=== PATIENT | male | born 1955 | race Caucasian/White ===

== ENCOUNTER 2020-04-20 09:01 | Emergency (ER) | payer OTHER ==
[~2020-04-20] VITALS: Ht 182.9 cm; Wt 99.3 kg
== END 2020-04-20 10:30 | disposition home or self-care (01) ==
LOC: ER 09:01
DX: J02.9 Acute pharyngitis, unspecified (principal)
CPT/HCPCS: 99284

== ENCOUNTER → 2021-04-14 | Outpatient (CLI) | payer OTHER | LOC: LAB SHORT 10:30 → LAB 10:30 | DX: R21 Rash and other nonspecific skin eruption (principal) | CPT/HCPCS: 87070; 87205 ==

== ENCOUNTER 2023-06-09 18:22 | Emergency (ER) | payer OTHER ==
[~2023-06-09] VITALS: Ht 193 cm; Wt 119.3 kg
[2023-06-09 19:03] VITALS: BP 112/66
== END 2023-06-09 20:29 | disposition home or self-care (01) ==
LOC: ER 18:22
DX: S80.821A Blister (nonthermal), right lower leg, initial encounter (principal); X58.XXXA Exposure to other specified factors, initial encounter; G62.9 Polyneuropathy, unspecified; R73.03 Prediabetes
CPT/HCPCS: 99284

== ENCOUNTER 2023-06-27 20:50 | Inpatient (IN) | payer OTHER ==
[~2023-06-27] VITALS: Ht 193 cm; Wt 110.7 kg
[2023-06-27 21:13] LABS: Hematocrit 29.9 % (37.0-53.0)
[2023-06-27] MEDS ORDERED: LOSA25 PO (21:14)
[2023-06-27] MEDS ORDERED: METF500 PO (21:15)
[2023-06-27] MEDS ORDERED: ASPI81CH PO (21:15)
[2023-06-27] MEDS ORDERED: DILT30 PO (21:15)
[2023-06-27] MEDS ORDERED: ALBU2.5V5 (21:16)
[2023-06-27] MEDS ORDERED: IBU800 MG PO (21:16)
[2023-06-27] MEDS ORDERED: ACET325 PO (21:17)
[2023-06-27 21:21] LABS: BASOPHILS ABSOLUTE AUTO 0.03 K/mm3 (0.00-0.23); BASOPHILS PERCENT AUTO 0 % (0-2); Hemoglobin 9.9 g/dL (13.5-17.5); LYMPHOCYTES ABSOLUTE AUTO 0.16 K/mm3 (0.84-5.20); LYMPHOCYTES PERCENT AUTO 2 % (21-46); MONOCYTES ABSOLUTE AUTO 0.25 K/mm3 (0.16-1.47); MONOCYTES PERCENT AUTO 3 % (4-13); Mean Corpuscular HGB 31.7 pg (26.0-34.0); Mean Corpuscular HGB Conc 33.1 g/dL (31.5-36.5); Mean Corpuscular Volume 96 fL (80-100); Mean Platelet Volume 9.5 fL (9.1-12.4); Platelet Count 228 K/mm3 (150-400); RDW Coefficient Variation 13.1 % (11.7-14.2); RDW Standard Deviation 46.3 fL (35.1-46.3); Red Blood Cell Count 3.12 M/mm3 (4.30-5.90); White Blood Cell Count 8.99 K/mm3 (4.00-11.30)
[2023-06-27 21:24] LABS: EOSINOPHILS ABSOLUTE AUTO 0.03 K/mm3 (0.00-0.68); EOSINOPHILS PERCENT AUTO 0 % (0-6); IMMATURE GRAN ABSOLUTE AUTO 0.05 K/mm3 (0.00-0.10); IMMATURE GRAN PERCENT AUTO 1 % (0-1); NEUTROPHILS ABSOLUTE AUTO 8.47 K/mm3 (1.96-9.15); NEUTROPHILS PERCENT AUTO 94 % (41-73)
[2023-06-27 21:27] LABS: International Normalized Ratio 1.64; Prothrombin Time Results 16.7 Sec (9.7-11.5)
[2023-06-27 21:34] LABS: Albumin, Blood 1.9 g/dL (3.4-5.0); Albumin/Globulin Ratio 0.4 (0.8-1.8); Bilirubin, Total 1.2 mg/dL (0.1-1.0); Bun/Creatinine Ratio 23.6 (12.0-20.0); Calcium, Blood 9.3 mg/dL (8.5-10.1); Creatinine, Blood 2.2 mg/dL (0.60-1.20); Globulin, Blood 5.3 g/dL (2.2-4.0); Potassium, Blood 3.9 mmol/L (3.5-5.5); Total Protein, Blood 7.2 g/dL (6.4-8.2)
[2023-06-27 21:43] LABS: BAND PERCENT MAN 9 % (0-8); BASOPHILS ABSOLUTE MAN 0.08 K/mm3 (0.00-0.23); BASOPHILS PERCENT MAN 1 % (0-2); EOSINOPHILS PERCENT MAN 0 % (0-6); LYMPHOCYTES ABSOLUTE MAN 0.35 K/mm3 (0.84-5.20); LYMPHOCYTES PERCENT MAN 4 % (21-46); MONOCYTES ABSOLUTE MAN 0.26 K/mm3 (0.16-1.47); MONOCYTES PERCENT MAN 3 % (4-13); NEUTROPHILS ABSOLUTE MAN 8.27 K/mm3 (1.96-9.15); SEG NEUTROPHILS PERCENT MAN 83 % (41-73); TOTAL CELLS COUNTED 100
[2023-06-28] VITALS (20 sets, daily range): BP systolic 95–125; BP diastolic 37–71
--- NOTE | 2023-06-28 00:30 | NUR ---
ADMIT ASSESSMENT PT ARRIVED FROM ER TO PCU 4 VIA GURNEY. TRANSFERED TO BED BY STAFF WITH SLIDER SHEET. PT AWAKE, A&O. ANSWERING QUESTIONS APPROP. SPEECH CLEAR. DENIES PAIN OR DISCOMFORT. PT MOVING ALL EXT. LUNGS CLEAR ON ROOMAIR. RESP EVEN AND NONLABORED. HEART RATE REGULAR. BP STABLE. BT+ ABD SOFT AND NONTENDER. DR STEWART AT BEDSIDE. RED RASH WITH YEAST NOTED TO RIGHT AXCILLARY, AND GROIN. RIGHT FOOT WITH WOUNDS, SEE WOUND PHOTO. IV 18G TO LEFT AC WITH ANTIBIOTIC INFUSING. WOUND CARE TO RIGHT FOOT. AREA CLEANED AND DRIED. HYDROGEL APPLIED AND COVERED WITH FOAM DRSG, THAN WRAPPED WITH GUAZE AND TAPE.
[2023-06-28 01:17] LABS: Phosphorus, Blood 2.3 mg/dL (2.5-4.9)
[2023-06-28] MEDS ORDERED: LATA.005SO BOTHEYES (01:23)
[2023-06-28] MEDS ORDERED: CLOBET30L TOP (01:24)
[2023-06-28 02:27] LABS: Hematocrit 30.5 % (37.0-53.0); Hemoglobin 10.1 g/dL (13.5-17.5); Mean Corpuscular HGB 31.2 pg (26.0-34.0); Mean Corpuscular HGB Conc 33.1 g/dL (31.5-36.5); Mean Corpuscular Volume 94 fL (80-100); Mean Platelet Volume 9.8 fL (9.1-12.4); Platelet Count 247 K/mm3 (150-400); RDW Coefficient Variation 13.2 % (11.7-14.2); RDW Standard Deviation 45.4 fL (35.1-46.3); Red Blood Cell Count 3.24 M/mm3 (4.30-5.90); White Blood Cell Count 11.89 K/mm3 (4.00-11.30)
[2023-06-28 02:45] LABS: Alanine Aminotransfer (ALT/SGP 41 U/L (12-78); Albumin, Blood 1.9 g/dL (3.4-5.0); Albumin/Globulin Ratio 0.3 (0.8-1.8); Alk Phos 134 U/L (50-136); Anion Gap 10 mmol/L (6-16); Aspartate Aminotrans (AST/SGOT 57 U/L (12-37); Bilirubin, Total 1.2 mg/dL (0.1-1.0); Blood Urea Nitrogen 53 mg/dL (8-24); Bun/Creatinine Ratio 25.4 (12.0-20.0); CO2, Blood 18 mmol/L (21-32); Calcium, Blood 8.9 mg/dL (8.5-10.1); Chloride, Blood 112 mmol/L (98-108); Creatinine, Blood 2.09 mg/dL (0.60-1.20); Globulin, Blood 5.5 g/dL (2.2-4.0); Glomerular Filtration Rate 34 (60-); Glucose, Blood 167 mg/dL (70-99); Potassium, Blood 3.4 mmol/L (3.5-5.5); Sodium, Blood 140 mmol/L (136-145); Total Protein, Blood 7.4 g/dL (6.4-8.2)
[2023-06-28 02:53] LABS: BAND PERCENT MAN 17 % (0-8); BASOPHILS PERCENT MAN 0 % (0-2); EOSINOPHILS ABSOLUTE MAN 0.11 K/mm3 (0.00-0.68); EOSINOPHILS PERCENT MAN 1 % (0-6); LYMPHOCYTES ABSOLUTE MAN 0.35 K/mm3 (0.84-5.20); LYMPHOCYTES PERCENT MAN 3 % (21-46); MONOCYTES ABSOLUTE MAN 0.11 K/mm3 (0.16-1.47); MONOCYTES PERCENT MAN 1 % (4-13); NEUTROPHILS ABSOLUTE MAN 11.29 K/mm3 (1.96-9.15); SEG NEUTROPHILS PERCENT MAN 78 % (41-73); TOTAL CELLS COUNTED 100
[2023-06-28 03:01] LABS: Specific Gravity, Urine 1.01 (1.003-1.022)
--- NOTE | 2023-06-28 06:39 | NUR ---
SHIFT SUMMARY PT ADMITTED TO PCU DURING THE NIGHT. VSS. WOUND CARE DONE. PT NPO FOR POSSIBLE SURG TODAY. PT MOVING SELF IN BED. MED WITH TYLENOL ONCE DURING THE NIGHT FOR HEADACHE WITH GOOD RESULTS. REPORT TO ON COMING NURSE
--- NOTE | 2023-06-28 07:15 | NUR ---
AM ASSESSMENT: Pt awake, A/O x 4. LS clear. HR Reg. BT positive. Pulses palp. States that he has some pain in his back that is chronic. Will treat per orders. Pt has wound to R foot with foul smell, black sloughing skin. Redness to groin and R armpit. Pt NPO for possible surgery today. VSS. IVF running per orders. Call light in reach. WIll monitor.
--- NOTE | 2023-06-28 15:00 | NUR ---
update: Pt taken to OR. Will await return.
--- NOTE | 2023-06-28 18:31 | NUR ---
SHIFT SUMMARY: Pt arrived to PCU4 from PACU. VSS. Alert and Oriented. R Leg with BKA. Stocking in place over an zakia wrap dressing. Pt states that he is having 7/10 pain in leg. States it is a "muscle cramp/spasm" type pain. Will medicate per orders. NO other changes at this time. Call light in reach. Will monitor.
--- NOTE | 2023-06-28 21:00 | NUR ---
ASSUMPTION OF CARE/ASSESSMENT: ASSUMED CARE OF PT AT 1900. PT SITTING IN BED, A&O X 4 AND IS FOLLOWING DIRECTIONS. PT STATUS POST OP DAY ONE FROM RIGHT BKA; RIGHT LEG STUMP DRESSING IS C/D/I. PT STATES PAIN IN R/LEG 06/14 THAT IS NOT WELL MANAGED WITH ORDERED PAIN MEDS. CALL PLACED TO RESIDENT AND ORDERS RECIEVED FOR DILAUDID CABINET INSTALLER PUMP. AFTER PUMP SET UP PER EMAR, PT STATING BETTER PAIN CONTROL. PT ON RA WITH SPO2 95< AND DENIES SOB. SR ON MONITOR WITH FREQUENT PVC'S, PT DENIES CHEST PAIN/PRESSURE AT THIS TIME. HYPERACTIVE BOWEL SOUNDS IN ALL QUADRANTS, ABD SOFT, NON-TENDER AND PT TOLERATING PO INTAKE. PT USING URINAL IN BED INDEPENDENTLY. SKIN WARM, INTACT. PT USING CALL LIGHT APPROPRIATELY. BED LOWERED, CALL LIGHT IN REACH.
[2023-06-29] VITALS (7 sets, daily range): BP systolic 109–133; BP diastolic 65–97
[2023-06-29 04:08] LABS: BASOPHILS ABSOLUTE AUTO 0.01 K/mm3 (0.00-0.23); BASOPHILS PERCENT AUTO 0 % (0-2); Hematocrit 27.4 % (37.0-53.0); LYMPHOCYTES ABSOLUTE AUTO 0.29 K/mm3 (0.84-5.20); LYMPHOCYTES PERCENT AUTO 3 % (21-46); MONOCYTES ABSOLUTE AUTO 0.18 K/mm3 (0.16-1.47); MONOCYTES PERCENT AUTO 2 % (4-13); Mean Corpuscular HGB 30.9 pg (26.0-34.0); Mean Corpuscular HGB Conc 32.8 g/dL (31.5-36.5); Mean Corpuscular Volume 94 fL (80-100); Mean Platelet Volume 9.8 fL (9.1-12.4); Platelet Count 238 K/mm3 (150-400); RDW Coefficient Variation 13.5 % (11.7-14.2); Red Blood Cell Count 2.91 M/mm3 (4.30-5.90); White Blood Cell Count 9.19 K/mm3 (4.00-11.30)
[2023-06-29 04:22] LABS: EOSINOPHILS PERCENT AUTO 0 % (0-6); IMMATURE GRAN ABSOLUTE AUTO 0.02 K/mm3 (0.00-0.10); IMMATURE GRAN PERCENT AUTO 0 % (0-1); NEUTROPHILS ABSOLUTE AUTO 8.69 K/mm3 (1.96-9.15); NEUTROPHILS PERCENT AUTO 95 % (41-73)
[2023-06-29 04:40] LABS: Alanine Aminotransfer (ALT/SGP 38 U/L (12-78); Albumin, Blood 1.7 g/dL (3.4-5.0); Albumin/Globulin Ratio 0.3 (0.8-1.8); Alk Phos 121 U/L (50-136); Anion Gap 9 mmol/L (6-16); Aspartate Aminotrans (AST/SGOT 52 U/L (12-37); Bilirubin, Total 0.5 mg/dL (0.1-1.0); Blood Urea Nitrogen 52 mg/dL (8-24); CO2, Blood 18 mmol/L (21-32); Calcium, Blood 8.2 mg/dL (8.5-10.1); Chloride, Blood 113 mmol/L (98-108); Globulin, Blood 5.2 g/dL (2.2-4.0); Glomerular Filtration Rate 59 (60-); Glucose, Blood 323 mg/dL (70-99); Magnesium, Blood 1.7 mg/dL (1.6-2.4); Potassium, Blood 4.5 mmol/L (3.5-5.5); Sodium, Blood 140 mmol/L (136-145); Total Protein, Blood 6.9 g/dL (6.4-8.2); Vancomycin, Random <0.8 ug/mL
[2023-06-29 05:16] LABS: BAND PERCENT MAN 3 % (0-8); BASOPHILS PERCENT MAN 0 % (0-2); EOSINOPHILS PERCENT MAN 0 % (0-6); LYMPHOCYTES ABSOLUTE MAN 0.18 K/mm3 (0.84-5.20); LYMPHOCYTES PERCENT MAN 2 % (21-46); MONOCYTES PERCENT MAN 0 % (4-13); SEG NEUTROPHILS PERCENT MAN 95 % (41-73); TOTAL CELLS COUNTED 100
--- NOTE | 2023-06-29 06:09 | NUR ---
SHIFT SUMMARY: NO ACUTE CHANGES THROUGHOUT THE SHIFT; VSS THROUGHOUT THE NIGHT. PT REMAINS ON DILAUDID ELDERLY SITTER; PT STATES THAT THIS ELDERLY SITTER HAS BEEN GIVING HIM MUCH BETTER PAIN CONTROL WITH PAIN RATING 3/10 AT THIS TIME. RIGHT BKA DRESSING C/D/I AND SWELLING HAS REMAINED THE SAME. PT DID NOT SLEEP MUCH THROUGHOUT THE NIGHT BUT STATES THAT IS HIS USUAL SLEEPING PATTERN. BED LOWERED, CALL LIGHT IN REACH, WILL CONTINUE TO MONITOR UNTIL ONCOMING RN ARRIVES.
--- NOTE | 2023-06-29 18:09 | NUR ---
MEDICAL STATUS / END OF SHIFT PT A&O X4. VSS. SPO2 > 92% ON RA. PT MADE MEDICAL NO TELEMETRY STATUS. PT REPORTING PAIN WELL MANAGED W/ DILAUDID OVEN EQUIPMENT REPAIRER. MD MARRERO TO BEDSIDE FOR R BKA WOUND ASSESSMENT/DRESSING CHANGE. PT C/O QUALITY OF FOOD IN HOSPITAL, OTHERWISE NO COMPLAINTS.
[2023-06-30 05:06] VITALS: BP 136/62
--- NOTE | 2023-06-30 06:23 | NUR ---
SHIFT SUMMARY MED NO TELE STATUS. PATIENT ALERT AND ORIENTED, COOPERATIVE WITH CARE, ABLE TO MAKE NEEDS KNOWN. VITALS STABLE, PATIENT REMAINED ON RA WITH O2 SAT >92%. PATIENT USING COMMIS CHEF FOR PAIN MANAGEMENT WITH GOOD RELIEF. SURGICAL SOCK IN PLACE OVER RIGHT BKA, DRESSING C/D/I. USING URINAL AT BEDSIDE WITH ADEQUATE OUTPUT. NO OTHER SIGNIFICANT CHANGES THIS SHIFT, WILL REPORT TO DAY SHIFT RN. NO IGNITION RISK NOTED AT THIS TIME, NO IGNITION SOURCES IN ROOM. PATIENT EDUCATED AND PATIENT VERBALIZED UNDERSTANDING. WILL CONTINUE TO ASSESS RISK.
--- NOTE | 2023-06-30 17:33 | NUR ---
END OF SHIFT PT MEDICAL NO TELE STATUS. A&O X4. VSS. SPO2 > 92% ON RA. PT ENCOURAGED TO REPOSITION SELF IN BED & MOVE ABLE MULTIPLE TIMES T/O SHIFT. PT STATING "I AM", BUT NEVER SEEN MOVING & REFUSES TO REPOSITION WHEN STAFF IN ROOM ENCOURAGING MOVEMENT. THIS RN EDUCATING PT ON NEED FOR MOVEMENT & PREVENTION OF PRESSURE SORES. PT RESPONDING "YOU DON'T NEED TO TELL ME ABOUT PRESSURE SORES LITTLE MISS." PHYSICAL THERAPY WORKING W/ PT TODAY W/ REPORT OF PT UNABLE TO STAND. PT R BKA DRESSING C/D/I. PT NOT C/O PAIN. IV DILAUDID OFFLINE EDITOR DCd EARLY THIS AFTERNOON PER MD THIS SHIFT. PT REPORTING PAIN 3/10 THIS EVENING W/ PO PRN PERCOCET GIVEN X1 THIS SHIFT. PT DENYING NEED FOR FURTHER PAIN MEDICATION AT THIS TIME.
[2023-06-30 17:41] VITALS: BP 119/75
[2023-06-30 19:58] VITALS: BP 105/72
[2023-07-01 04:15] LABS: Mean Corpuscular HGB 30.6 pg (26.0-34.0); Mean Corpuscular HGB Conc 32.1 g/dL (31.5-36.5); Mean Corpuscular Volume 95 fL (80-100); Mean Platelet Volume 9.7 fL (9.1-12.4); NRBC ABSOLUTE 0.02 K/mm3 (0.00-0.02); NRBC Auto 0.3 /100 WBC (0.0-0.2); Platelet Count 229 K/mm3 (150-400); RDW Coefficient Variation 13.5 % (11.7-14.2); RDW Standard Deviation 47.3 fL (35.1-46.3); Red Blood Cell Count 2.94 M/mm3 (4.30-5.90); White Blood Cell Count 7.92 K/mm3 (4.00-11.30)
[2023-07-01 04:37] LABS: Bun/Creatinine Ratio 51.4 (12.0-20.0); Calcium, Blood 8.6 mg/dL (8.5-10.1); Creatinine, Blood 0.99 mg/dL (0.60-1.20); Potassium, Blood 4.4 mmol/L (3.5-5.5)
[2023-07-01 05:41] VITALS: BP 140/81
--- NOTE | 2023-07-01 06:14 | NUR ---
SHIFT SUMMARY MED NO TELE STATUS PATIENT ALERT AND ORIENTED x4, ABLE TO MAKE NEEDS KNOWN TO STAFF. VITALS STABLE, PATIENT REMAINED ON RA WITH O2 SAT >93%. TOLERATING PO. USING URINAL AT BEDSIDE INDEPENDENTLY. MEDICATED PER EMAR FOR PAIN. SURGICAL SOCK IN PLACE OVER RIGHT BKA SITE, C/D/I. PATIENT EDUCATED ON IMPORTANCE OF TURNS TO PREVENT PRESSURE ULCERS, PATIENT UNINTERESTED AND DECLINED NEED FOR TURNING DURING THE NIGHT. NO OTHER SIGNIFICANT CHANGES THIS SHIFT. WILL REPORT TO DAY SHIFT RN. NO IGNITION SOURCES NOTED. PATIENT EDUCATED AND VERBALIZED UNDERSTANDING. WILL CONTINUE TO MONITOR RISK.
[2023-07-01 08:13] VITALS: BP 132/65
--- NOTE | 2023-07-01 18:25 | NUR ---
SHIFT SUMMARY; ASSUMED CARE AT 0700, A/A/OX4 DURING SHIFT. COOPERATIVE WITH CARE. RIGHT BKA DRESSING IN PLACE WITH SOCK. MOVES SELF ON GURNEY, USES URINAL INDEPENDANTLY. WORKED WITH PT/OT TODAY, INSULIN PER EMAR, NO ACUTE MEDICAL CHANGES, WILL CONTINUE TO MONITOR AND TREAT UNTIL CHANGE OF SHIFT.
[2023-07-01 20:39] VITALS: BP 147/91
[2023-07-02 03:36] VITALS: BP 147/92
[2023-07-02 04:00] LABS: BASOPHILS ABSOLUTE AUTO 0.04 K/mm3 (0.00-0.23); BASOPHILS PERCENT AUTO 1 % (0-2); EOSINOPHILS ABSOLUTE AUTO 0.17 K/mm3 (0.00-0.68); EOSINOPHILS PERCENT AUTO 2 % (0-6); Hematocrit 28.6 % (37.0-53.0); Hemoglobin 9.5 g/dL (13.5-17.5); IMMATURE GRAN ABSOLUTE AUTO 0.18 K/mm3 (0.00-0.10); IMMATURE GRAN PERCENT AUTO 2 % (0-1); LYMPHOCYTES ABSOLUTE AUTO 1.44 K/mm3 (0.84-5.20); LYMPHOCYTES PERCENT AUTO 19 % (21-46); MONOCYTES ABSOLUTE AUTO 0.51 K/mm3 (0.16-1.47); MONOCYTES PERCENT AUTO 7 % (4-13); Mean Corpuscular HGB 30.8 pg (26.0-34.0); Mean Corpuscular HGB Conc 33.2 g/dL (31.5-36.5); Mean Corpuscular Volume 93 fL (80-100); Mean Platelet Volume 9.8 fL (9.1-12.4); NEUTROPHILS ABSOLUTE AUTO 5.36 K/mm3 (1.96-9.15); NEUTROPHILS PERCENT AUTO 70 % (41-73); Platelet Count 237 K/mm3 (150-400); RDW Coefficient Variation 13.1 % (11.7-14.2); Red Blood Cell Count 3.08 M/mm3 (4.30-5.90)
[2023-07-02 04:22] LABS: Albumin, Blood 1.9 g/dL (3.4-5.0); Anion Gap 4 mmol/L (6-16); Blood Urea Nitrogen 35 mg/dL (8-24); Bun/Creatinine Ratio 46.1 (12.0-20.0); CO2, Blood 26 mmol/L (21-32); Calcium, Blood 8.6 mg/dL (8.5-10.1); Chloride, Blood 112 mmol/L (98-108); Creatinine, Blood 0.76 mg/dL (0.60-1.20); Glomerular Filtration Rate 97 (60-); Glucose, Blood 255 mg/dL (70-99); Phosphorus, Blood 2.2 mg/dL (2.5-4.9); Potassium, Blood 3.7 mmol/L (3.5-5.5); Sodium, Blood 142 mmol/L (136-145)
--- NOTE | 2023-07-02 06:12 | NUR ---
SHIFT SUMMARY: A/Ox4 AND COOPERATIVE WITH CARE. ANSWERS QUESTIONS APPROPRIATELY AND ABLE TO MAKE HIS NEEDS KNOWN. AT 0550 THIS AM, PT ALERTED THIS RN TO WHAT HE DESCRIBED "HEARING A [age] YEAR OLD TALKING TO HIS MOTHER". PT DENIES SEEING THESE FIGURES, JUST HEARING THEM IN THE ROOM. PT REMAINED A/Ox4 DURING THIS TIME WELL, FOR HE NEW WHERE HE WAS, WHY HE WAS HERE, HIS , MONTH, AND THE PRESIDENT. PT ASLO REPORTED "I'VE BEEN HAVING HALLUCINATIONS 3xDAYS BEFORE COMING TO THE HOSPITAL". CARDIAC, REMAINS MED STATUS W/O TELE. NO REPORTS OF ANY CP OR PRESSURE DURING THE NIGHT. SBP REMAINED STABLE IN THE 140'S. RESPIRATORY, MAINTAINS SPO2 >90% ON RA WITH NO REPORTS OF SOB OR DYSPNEA. GI/, ABLE TO IND. VOID INTO URINAL AT BEDSIDE. NO BM THIS SHIFT, BOWEL CARE MEDS GIVEN SCHEDUELD. PT REPORTS INCREASING STRENGTH BY WORKING WITH PT/OT. RECENT RIGHT BKA DRESSING REMAINS C/D/I. PAIN HAS BEEN MANAGED WELL VIA EMAR. ASSESSED PT FOR RISKS OF ANY IGNITION SOURCES WELL BEHAVIORS FOR INCREASED RISKS OF FIRE DANGER. PT EDUCATED ON COMMON SOURCES OF IGNITION WELL NEED TO KEEP A SAFE ENVIRONMENT. PT VOICED UNDERSTANDING. NO NEW ORDERS AT THIS TIME, WILL REPORT TO ONCOMING RN. CAROLYNE YOUNG OF THIS NOTE. NO NEW ORDERS AT THIS TIME, WILL REPORT TO ONCOMING RN. CAROLYNE YOUNG OF THIS NOTE.
[2023-07-02 08:18] VITALS: BP 126/70
[2023-07-02 16:49] VITALS: BP 127/69
--- NOTE | 2023-07-02 17:43 | NUR ---
SHIFT SUMMARY; ASSUMED CARE AT 0700, A/A/OX4. MOVES SELF ON GURNEY FOR REPOSITIONING, USES URINAL. DRESSING TO RIGHT STUMP C/D/I. WORKED WITH PT/OT, AWAITING PLACEMENT TO SNIFF. VSS, INSULIN COVERAGE PER EMAR, WILL CONTINUE TO MONITOR AND TREAT UNTIL CHANGE OF SHIFT.
[2023-07-02 19:58] VITALS: BP 116/81
[2023-07-03 03:14] VITALS: BP 105/80
[2023-07-03 03:32] LABS: BASOPHILS ABSOLUTE AUTO 0.03 K/mm3 (0.00-0.23); BASOPHILS PERCENT AUTO 0 % (0-2); EOSINOPHILS PERCENT AUTO 3 % (0-6); Hematocrit 28.5 % (37.0-53.0); Hemoglobin 9.6 g/dL (13.5-17.5); IMMATURE GRAN PERCENT AUTO 1 % (0-1); LYMPHOCYTES ABSOLUTE AUTO 1.47 K/mm3 (0.84-5.20); LYMPHOCYTES PERCENT AUTO 18 % (21-46); MONOCYTES ABSOLUTE AUTO 0.45 K/mm3 (0.16-1.47); MONOCYTES PERCENT AUTO 6 % (4-13); Mean Corpuscular HGB Conc 33.7 g/dL (31.5-36.5); Mean Corpuscular Volume 92 fL (80-100); Mean Platelet Volume 9.8 fL (9.1-12.4); NEUTROPHILS PERCENT AUTO 72 % (41-73); Platelet Count 231 K/mm3 (150-400); RDW Standard Deviation 43.3 fL (35.1-46.3); White Blood Cell Count 8.15 K/mm3 (4.00-11.30)
[2023-07-03 04:01] LABS: Albumin, Blood 1.9 g/dL (3.4-5.0); Anion Gap 5 mmol/L (6-16); Blood Urea Nitrogen 25 mg/dL (8-24); Bun/Creatinine Ratio 35.7 (12.0-20.0); CO2, Blood 27 mmol/L (21-32); Calcium, Blood 8.4 mg/dL (8.5-10.1); Chloride, Blood 111 mmol/L (98-108); Glomerular Filtration Rate 100 (60-); Glucose, Blood 234 mg/dL (70-99); Phosphorus, Blood 2.8 mg/dL (2.5-4.9); Potassium, Blood 3.3 mmol/L (3.5-5.5); Sodium, Blood 143 mmol/L (136-145)
--- NOTE | 2023-07-03 05:39 | NUR ---
SHIFT SUMMARY A/Ox4 AND COOPERATIVE WITH CARE. ANSWERS QUESTIONS APPROPRIATELY AND ABLE TO MAKE HIS NEEDS KNOWN. NO REPORTS OF ANY HALLUCINATIONS OR HEARING OF VOICES THIS AM. CARDIAC, REMAINS MED STATUS W/O TELE. NO REPORTS OF ANY CP OR PRESSURE DURING THE NIGHT. SBP REMAINED STABLE IN THE 100-110'S. RESPIRATORY, MAINTAINS SPO2 >90% ON RA WITH NO REPORTS OF SOB OR DYSPNEA. GI/, ABLE TO IND. VOID INTO URINAL AT BEDSIDE. NO BM THIS SHIFT, BOWEL CARE MEDS GIVEN SCHEDULED. CONTINUES TO NOT HAVE BM DESPITE ENCOURAGEMENT/EDUCATION FROM THIS RN. PT EXPRESSES HE LL TRY AGAIN IN THE MORNING . BS CONTINUE TO BE PRESENT, BUT HYPOACTIVE. ABD SOFT, BUT MODERATE DISTENTION NOTED. PT REPORTS INCREASING STRENGTH BY WORKING WITH PT/OT. RECENT RIGHT BKA DRESSING REMAINS C/D/I. BACK AND LEG PAIN HAVE BEEN MANAGED WELL VIA EMAR. ASSESSED PT FOR RISKS OF ANY IGNITION SOURCES WELL BEHAVIORS FOR INCREASED RISKS OF FIRE DANGER. PT EDUCATED ON COMMON SOURCES OF IGNITION WELL NEED TO KEEP A SAFE ENVIRONMENT. PT VOICED UNDERSTANDING. NO NEW ORDERS AT THIS TIME, WILL REPORT TO ONCOMING RN. CAROLYNE YOUNG OF THIS NOTE. NO NEW ORDERS AT THIS TIME, WILL REPORT TO ONCOMING RN. CAROLYNE YOUNG OF THIS NOTE.
[2023-07-03 07:10] VITALS: BP 134/75
--- NOTE | 2023-07-03 07:30 | NUR ---
Received report from Jaun CADE.Patient is alert and oriented and is able to communicate his needs. His speech is clear and understandable. he has concerns about going home. He is on RA and sats >95%. He is mostly independent in bed with positioning and calls appropriately. Has pull-up in place and calls when needing bed martin and uses urinal approptiately. New RBKA site C/D/I and no signs of bleeding or oozing. Dr Ruiz will do dressing change today per report. He has 20ga IV that is flushed and SL'd. Dr. Aviles has been by and assessed patient and no new orders. Plan is to be transferred to [facility] today.
[2023-07-03] MEDS ORDERED: CARVEDILOL6.25 MG PO (09:06)
[2023-07-03] MEDS ORDERED: GLIP2.5ER PO (10:04)
[2023-07-03] MEDS ORDERED: Methocarbamol500 MG PO (10:05)
[2023-07-03] MEDS ORDERED: LOSA50 PO (10:06)
[2023-07-03] MEDS ORDERED: FLUT1DIS2 INH (10:07)
[2023-07-03 12:23] LABS: SARS-Cov-2 (COVID-19) PCR, MMC NEGATIVE (NEGATIVE)
[2023-07-03 13:08] VITALS: BP 135/80
--- NOTE | 2023-07-03 13:23 | NUR ---
Patient has been on bedpan twice and has had two large BM's. PT has worked with him and used slider board to chair and we used yohannes lift sheet to get back to bed. He has been independnet with positioning in bed. He remains on RA and sats >95%. Plan is to go to [facility] when insurance approves. Medicated with Tylenol for 6/10 pain. he has tolerated meds and meals with out assisstance. He stated to OT that he wasnt to rest.
[2023-07-03] MEDS ORDERED: AMOCLA875 PO (15:41)
[2023-07-03] MEDS ORDERED: Acetaminophen650 M1 PO (15:41)
[2023-07-03] MEDS ORDERED: JUVEN PACKET1 EAC3 PO (15:43)
[2023-07-03] MEDS ORDERED: [UNRECOGNIZED DRUG - CODE] PO (15:45)
[2023-07-03] MEDS ORDERED: DOCU100 PO (15:46)
[2023-07-03] MEDS ORDERED: BISA10S PR (15:46)
[2023-07-03] MEDS ORDERED: SEMGLEE (Y100 UNIT/2 SC (15:49)
[2023-07-03] MEDS ORDERED: HUMALOG KW100 UNIT/1 SC (15:57)
[2023-07-03] MEDS ORDERED: MIRALAX17 GM PO (15:58)
[2023-07-03] MEDS ORDERED: B-1100 M1 PO (15:58)
[2023-07-03] MEDS ORDERED: VISBIOME 112.51 EACH PO (15:59)
--- NOTE | 2023-07-03 16:24 | NUR ---
Patient has been resting and calls appropriately. He is on RA and kenneth >95%. Dr Ruiz has been called and he will follow up on 07/12 for wound evaluations. They will be picking him up at 1700, will gather belongings. Patient has been using urinal appropriately. He has been alert and able to communicate his needs. Pulling IV intact and Site WNL's.
== END 2023-07-03 18:19 | DRG 854 ==
LOC: ER 20:50 → PCU 23:48
PROVIDERS: Family Medicine; Internal Medicine; Internal Medicine Endocrinology, Diabetes & Metabolism; ADMIT Student in an Organized Health Care Education/Training Program
PROC: 3E03329 Introduction of Other Anti-infective into Peripheral Vein, Percutaneous Approach (ICD-10-PCS; principal; 2023-06-27)
PROC: 0Y6H0Z1 Detachment at Right Lower Leg, High, Open Approach (ICD-10-PCS; 2023-06-27)
DX: A40.8 Other streptococcal sepsis (principal); E11.52 Type 2 diabetes mellitus with diabetic peripheral angiopathy with gangrene; L97.419 Non-pressure chronic ulcer of right heel and midfoot with unspecified severity; I96 Gangrene, not elsewhere classified; L97.429 Non-pressure chronic ulcer of left heel and midfoot with unspecified severity; M86.172 Other acute osteomyelitis, left ankle and foot; E87.20 Acidosis, unspecified; N17.9 Acute kidney failure, unspecified; E11.621 Type 2 diabetes mellitus with foot ulcer; R65.20 Severe sepsis without septic shock; Z20.822 Contact with and (suspected) exposure to COVID-19; E11.69 Type 2 diabetes mellitus with other specified complication; J44.9 Chronic obstructive pulmonary disease, unspecified; S91.001A Unspecified open wound, right ankle, initial encounter; E87.6 Hypokalemia; E83.39 Other disorders of phosphorus metabolism; E88.09 Other disorders of plasma-protein metabolism, not elsewhere classified; D63.8 Anemia in other chronic diseases classified elsewhere; I10 Essential (primary) hypertension; E78.5 Hyperlipidemia, unspecified; E11.40 Type 2 diabetes mellitus with diabetic neuropathy, unspecified; H40.9 Unspecified glaucoma; Z87.891 Personal history of nicotine dependence; Z89.432 Acquired absence of left foot; Z87.81 Personal history of (healed) traumatic fracture; Z86.14 Personal history of Methicillin resistant Staphylococcus aureus infection; Z79.82 Long term (current) use of aspirin; Z79.899 Other long term (current) drug therapy; Z79.1 Long term (current) use of non-steroidal anti-inflammatories (NSAID); Z79.84 Long term (current) use of oral hypoglycemic drugs; Z98.890 Other specified postprocedural states
CPT/HCPCS: 36415; 73600; 76770; 80048; 80053; 80069; 80202; 81003; 82570; 82947; 83036; 83605; 83735; 83880; 83935; 84100; 84300; 84484; 85025; 85027; 85610; 85651; 86140; 87040; 87147; 87184; 88307; 93005; 93010; 93306; 93922; 94640; 94664; 94760; 96361; 96365; 96366; 96367; 97110; 97161; 97166; 97530; 97535; 99285-25; A9270; J0692; J0696; J1100; J1170; J1650; J1815; J2371; J2405; J2704; J3010; J3370; J7030; J7050; J7060; J7120; U0002

== ENCOUNTER 2023-09-13 14:18 | Emergency (ER) | payer OTHER ==
[~2023-09-13] VITALS: Ht 193 cm; Wt 108.9 kg
[~2023-09-13 14:18] MED LIST: ACET325 PO; ALBU2.5V5; AMOCLA875 PO; ASPI81CH PO; Acetaminophen650 M1 PO; B-1100 M1 PO; BISA10S PR; CARVEDILOL6.25 MG PO; CLOBET30L TOP; DILT30 PO; DOCU100 PO; FLUT1DIS2 INH; GLIP2.5ER PO; HUMALOG KW100 UNIT/1 SC; IBU800 MG PO; JUVEN PACKET1 EAC3 PO; LATA.005SO BOTHEYES; LOSA25 PO; LOSA50 PO; METF500 PO; MIRALAX17 GM PO; Methocarbamol500 MG PO; SEMGLEE (Y100 UNIT/2 SC; VISBIOME 112.51 EACH PO; [UNRECOGNIZED DRUG - CODE] PO
[2023-09-13 14:26] VITALS: BP 131/68
== END 2023-09-13 15:44 | disposition home or self-care (01) ==
LOC: ER 14:18
DX: S80.811A Abrasion, right lower leg, initial encounter (principal); E11.9 Type 2 diabetes mellitus without complications; Z89.511 Acquired absence of right leg below knee; Z79.899 Other long term (current) drug therapy; Z79.4 Long term (current) use of insulin; Z79.84 Long term (current) use of oral hypoglycemic drugs; W05.0XXA Fall from non-moving wheelchair, initial encounter; Y92.002 Bathroom of unspecified non-institutional (private) residence as the place of occurrence of the external cause
CPT/HCPCS: 73590; 99283-25

== ENCOUNTER 2024-11-09 17:55 | Inpatient (IN) | payer OTHER ==
[~2024-11-09] VITALS: Ht 193 cm; Wt 110.8 kg
[~2024-11-09 17:55] MED LIST changes: -CLOBET30L TOP; +CLOBETTC TOP
[2024-11-09 18:21] LABS: BASOPHILS ABSOLUTE AUTO 0.04 K/mm3 (0.00-0.23); BASOPHILS PERCENT AUTO 0 % (0-2); EOSINOPHILS ABSOLUTE AUTO 0.01 K/mm3 (0.00-0.68); EOSINOPHILS PERCENT AUTO 0 % (0-6); Hematocrit 37.5 % (37.0-53.0); Hemoglobin 12.4 g/dL (13.5-17.5); IMMATURE GRAN ABSOLUTE AUTO 0.07 K/mm3 (0.00-0.10); IMMATURE GRAN PERCENT AUTO 1 % (0-1); LYMPHOCYTES ABSOLUTE AUTO 0.57 K/mm3 (0.84-5.20); LYMPHOCYTES PERCENT AUTO 4 % (21-46); MONOCYTES ABSOLUTE AUTO 0.56 K/mm3 (0.16-1.47); MONOCYTES PERCENT AUTO 4 % (4-13); Mean Corpuscular HGB Conc 33.1 g/dL (31.5-36.5); Mean Corpuscular Volume 100 fL (80-100); Mean Platelet Volume 10.1 fL (9.1-12.4); NEUTROPHILS ABSOLUTE AUTO 13.55 K/mm3 (1.96-9.15); NEUTROPHILS PERCENT AUTO 91 % (41-73); Platelet Count 176 K/mm3 (150-400); RDW Coefficient Variation 13.2 % (11.7-14.2); RDW Standard Deviation 48.3 fL (35.1-46.3); Red Blood Cell Count 3.76 M/mm3 (4.30-5.90)
[2024-11-09 18:43] LABS: Albumin, Blood 2.8 g/dL (3.4-5.0); Albumin/Globulin Ratio 0.6 (0.8-1.8); Bilirubin, Total 0.9 mg/dL (0.1-1.0); Bun/Creatinine Ratio 31.6 (12.0-20.0); Calcium, Blood 10.9 mg/dL (8.5-10.1); Creatinine, Blood 1.55 mg/dL (0.60-1.20); Potassium, Blood 5.6 mmol/L (3.5-5.5); Total Protein, Blood 7.8 g/dL (6.4-8.2)
[2024-11-10] VITALS (29 sets, daily range): BP systolic 100–149; BP diastolic 53–98
[2024-11-10] MEDS ORDERED: Pantoprazole Sodium 40 MG in NS 50 ML IV SCH (00:30)
[2024-11-10] MEDS ORDERED: Pantoprazole Sodium 40 MG Injection IV ONE (00:30)
[2024-11-10] MEDS ORDERED: NS 1,000 ML IV SCH ×2 (00:40→03:00)
[2024-11-10] MEDS ORDERED: Cefepime HCl 2,000 MG in NS 100 ML IV ONE (00:40)
[2024-11-10] MEDS ORDERED: MetroNIDAZOLE 500MG/NS 100 ml 100 ML IV ONE (00:40)
[2024-11-10] MEDS ORDERED: HYDROmorphone HCl/Pf 1MG SYR IV ONE (00:45)
[2024-11-10 01:59] LABS: Source, Urine Clean Catch
[2024-11-10] MEDS ORDERED: FLU VACC TS2024-25(6MOS UP)/PF 45 MCG/0.5 ML SYRINGE IM ONE (02:05)
[2024-11-10 02:09] LABS: Blood, Urine 1+ (Neg); Glucose Qualitative, Urine Neg (Neg); Ketones, Urine 1+ (Neg); Leukocyte Esterase, Urine Neg (Neg); Nitrite, Urine Neg (Neg); Protein, Urine 2+ (Neg); Specific Gravity, Urine 1.015 (1.003-1.022); Urobilinogen, Urine 1+ (Normal)
[2024-11-10 02:20] LABS: Appearance, Urine Hazy (Clear); Bilirubin, Urine 1+ (Neg); Color, Urine Amber (P-Yellow)
[2024-11-10 02:22] LABS: Amorphous Mod (0-Heavy); Bacteria Few /hpf; Mucus Light (0-Heavy); Red Blood Cells, Urine 0-2 /hpf (0-2); Squamous Epithelial Cells Rare /hpf (Few)
[2024-11-10] MEDS ORDERED: Bupivacaine 0.5% HCl 5 MG/ML 30MLVIAL ONE (02:43)
[2024-11-10] MEDS ORDERED: Fluconazole 400MG/Iso-Sod 200M 200 ML IV ONE (03:00)
[2024-11-10] MEDS ORDERED: Oxymetazoline 0.05% Nasal Relief Spray 15mL BTL ONE (03:04)
[2024-11-10] MEDS ORDERED: FentaNYL Citrate 50 MCG/ML 5 ML Injection ONE (03:08)
[2024-11-10] MEDS ORDERED: Calcium Chloride 10% 10 ML SYR ONE (03:13)
[2024-11-10] MEDS ORDERED: Etomidate 2MG / ML 10ML Vial ONE (03:13)
[2024-11-10] MEDS ORDERED: Lidocaine HCl 2% Jelly 120MG/6ML SYR (20MG PER ML) ONE (03:33)
[2024-11-10] MEDS ORDERED: Phenylephrine HCl 100 MCG/ML-NS 10MLSYR (1MG/10ML) ONE (04:17)
[2024-11-10] MEDS ORDERED: Ondansetron HCl 2 MG / ML 2ML Vial ONE ×2 (04:17→05:15)
[2024-11-10] MEDS ORDERED: Rocuronium Bromide 10 MG/ML 5ML Injection IV ONE ×2 (04:17→05:13)
[2024-11-10] MEDS ORDERED: Sugammadex Sodium 200 MG/2ML SDV (100 MG/ML) ONE (05:14)
[2024-11-10 05:59] LABS: BASOPHILS ABSOLUTE AUTO 0.04 K/mm3 (0.00-0.23); BASOPHILS PERCENT AUTO 0 % (0-2); EOSINOPHILS ABSOLUTE AUTO 0.04 K/mm3 (0.00-0.68); EOSINOPHILS PERCENT AUTO 0 % (0-6); Hematocrit 32.3 % (37.0-53.0); Hemoglobin 10.7 g/dL (13.5-17.5); IMMATURE GRAN ABSOLUTE AUTO 0.08 K/mm3 (0.00-0.10); IMMATURE GRAN PERCENT AUTO 1 % (0-1); LYMPHOCYTES ABSOLUTE AUTO 1.07 K/mm3 (0.84-5.20); LYMPHOCYTES PERCENT AUTO 9 % (21-46); MONOCYTES ABSOLUTE AUTO 0.66 K/mm3 (0.16-1.47); MONOCYTES PERCENT AUTO 6 % (4-13); Mean Corpuscular HGB 33.4 pg (26.0-34.0); Mean Corpuscular HGB Conc 33.1 g/dL (31.5-36.5); Mean Corpuscular Volume 101 fL (80-100); Mean Platelet Volume 10.2 fL (9.1-12.4); NEUTROPHILS ABSOLUTE AUTO 9.97 K/mm3 (1.96-9.15); NEUTROPHILS PERCENT AUTO 84 % (41-73); Platelet Count 151 K/mm3 (150-400); RDW Coefficient Variation 13.2 % (11.7-14.2); RDW Standard Deviation 49.1 fL (35.1-46.3); White Blood Cell Count 11.86 K/mm3 (4.00-11.30)
[2024-11-10] MEDS ORDERED: Insulin Human Lispro 100 Units/ML 3ML Syringe SC SCH (06:00)
[2024-11-10] MEDS ORDERED: Pantoprazole Sodium 40 MG Injection IV SCH ×2 (06:00)
[2024-11-10 06:20] LABS: Albumin, Blood 2.3 g/dL (3.4-5.0); Albumin/Globulin Ratio 0.5 (0.8-1.8); Bilirubin, Total 0.6 mg/dL (0.1-1.0); Bun/Creatinine Ratio 33.5 (12.0-20.0); Calcium, Blood 9.9 mg/dL (8.5-10.1); Creatinine, Blood 1.64 mg/dL (0.60-1.20); Globulin, Blood 4.6 g/dL (2.2-4.0); Potassium, Blood 5.5 mmol/L (3.5-5.5); Total Protein, Blood 6.9 g/dL (6.4-8.2)
[2024-11-10] MEDS ORDERED: NS 1,000 ML IV ONE (06:42)
--- NOTE | 2024-11-10 06:48 | NUR ---
TRANSFER/EOS: PATIENT IS ALERT AND ORIENTED X4, TKO OF LR RUNNING, SWITCHED TO NS AT 125, PROTONIX GIVEN. CBG OBTAINED, VSS. 2L VIA NC. JOEY DRAIN 2 DRAINED 28, PATIENT DOES REPORT SOME MINOR PAIN RQ PAIN. NG TO LOW CONTINOUS SUCTION. VERY THICK TENACIOUS SECRETIONS, PLASCENCIA APPEARS TO BE PATENT AND DRAINING TO GRAVITY. PATIENT WAS SETTLED AND HANDED OFF TO ONCOMING NURSE, ADDRESSED MANY URGENT CONCERNS PATIENT CAME AT SHIFT CHANGE.
[2024-11-10] MEDS ORDERED: Piperacillin/Tazobactam Sod 3.375 GM in NS 100 ML IV SCH (08:00)
[2024-11-10 10:41] LABS: Magnesium, Blood 1.3 mg/dL (1.6-2.4)
[2024-11-10 10:43] LABS: Bun/Creatinine Ratio 35.9 (12.0-20.0); Creatinine, Blood 1.28 mg/dL (0.60-1.20); Potassium, Blood 4.3 mmol/L (3.5-5.5)
[2024-11-10 10:44] LABS: Calcium, Blood 7.8 mg/dL (8.5-10.1)
[2024-11-10] MEDS ORDERED: Magnesium Sulf 2 GM/Water 50ML 50 ML IV ONE ×2 (11:10→20:15)
[2024-11-10] MEDS ORDERED: TPN Consult Notification XX ONE (11:15)
[2024-11-10 11:41] LABS: Phosphorus, Blood 2.5 mg/dL (2.5-4.9); Triglycerides 94 mg/dL (30-160)
[2024-11-10] MEDS ORDERED: BREO ELLIPTA 11 EAC1 INH (12:54)
[2024-11-10] MEDS ORDERED: METFORMIN HCL500 M2 PO (12:55)
[2024-11-10] MEDS ORDERED: MONT10T PO (12:56)
[2024-11-10] MEDS ORDERED: ATORVASTATIN CA20 MG PO (12:57)
[2024-11-10] MEDS ORDERED: Methocarbamol500 MG PO (12:59)
[2024-11-10] MEDS ORDERED: Parenteral Electolytes 40 ML,Potassium Phosphate Dibasic 30 MM,Multivitamins 10 ML,ZINC... IV SCH ×2 (17:00)
--- NOTE | 2024-11-10 18:41 | NUR ---
SHIFT SUMMERY: NEURO: NO ACUTE CHANGES SINCE PREVIOUS ASSESSMENTS. A&OX4. CARDIAC: REMAINS ON TELE. NO COMPLAINTS OF CP. VSS. RESP: PT ON RA. DENIES ANY SOB. NO ACUTE CHANGES DURING SHIFT. GI/: PT HAS NG TUBE IN PLACE, DRAINING GREEN/BULE EMESIS THAT CHANGED TO BROWN THIS AFTERNOON. NO COMPLAINTS OF ABD PAIN DURING SHIFT. JOEY DRAIN X2 TO R ABD. DRAINING CLEAR BLOOD TINGED OUTPUT. PT HAS REMAINED NPO THROUGOUT SHIFT. PPN WAS STARTED THIS AFTERNOON. LINES: POWERGLIDE TO ESTELLE. 20G IV TO RWR. PT SLEPT MOST OF THE DAY. COMPLAINTED OF A HEADACHE THIS AM THAT WAS RESOLVED WITH SLEEPING. OTHERWISE NO COMPLAINTS. NO SIGNIFICANT EVENTS HAPPENED DURING THIS SHIFT. WILL CONTINUE TO CARE FOR PT TILL END OF SHIFT.
[2024-11-11] VITALS: BP 117/93
[2024-11-11 04:00] VITALS: BP 127/64
[2024-11-11 04:56] LABS: BASOPHILS ABSOLUTE AUTO 0.02 K/mm3 (0.00-0.23); BASOPHILS PERCENT AUTO 0 % (0-2); EOSINOPHILS ABSOLUTE AUTO 0.12 K/mm3 (0.00-0.68); EOSINOPHILS PERCENT AUTO 2 % (0-6); Hemoglobin 10.5 g/dL (13.5-17.5); IMMATURE GRAN ABSOLUTE AUTO 0.03 K/mm3 (0.00-0.10); IMMATURE GRAN PERCENT AUTO 0 % (0-1); LYMPHOCYTES ABSOLUTE AUTO 0.41 K/mm3 (0.84-5.20); LYMPHOCYTES PERCENT AUTO 5 % (21-46); MONOCYTES ABSOLUTE AUTO 0.42 K/mm3 (0.16-1.47); MONOCYTES PERCENT AUTO 5 % (4-13); Mean Corpuscular HGB 33.7 pg (26.0-34.0); Mean Corpuscular HGB Conc 32.8 g/dL (31.5-36.5); Mean Corpuscular Volume 103 fL (80-100); Mean Platelet Volume 10.1 fL (9.1-12.4); NEUTROPHILS ABSOLUTE AUTO 7.19 K/mm3 (1.96-9.15); NEUTROPHILS PERCENT AUTO 88 % (41-73); Platelet Count 151 K/mm3 (150-400); RDW Coefficient Variation 13.5 % (11.7-14.2); RDW Standard Deviation 51.2 fL (35.1-46.3); Red Blood Cell Count 3.12 M/mm3 (4.30-5.90); White Blood Cell Count 8.19 K/mm3 (4.00-11.30)
[2024-11-11 05:26] LABS: Albumin, Blood 2.1 g/dL (3.4-5.0); Bun/Creatinine Ratio 34.1 (12.0-20.0); Calcium, Blood 9.3 mg/dL (8.5-10.1); Creatinine, Blood 1.29 mg/dL (0.60-1.20); Magnesium, Blood 2.5 mg/dL (1.6-2.4); Phosphorus, Blood 2.3 mg/dL (2.5-4.9); Potassium, Blood 4.6 mmol/L (3.5-5.5)
[2024-11-11] MEDS ORDERED: Fluconazole 200MG/Iso-Sod 100M 100 ML IV SCH (06:00)
--- NOTE | 2024-11-11 06:49 | NUR ---
SHIFT SUMMARY PATIENT ALERT AND ORIENTED X4. HAD NO COMPLAINTS OF PAIN OR SHORTNESS OF BREATH. ON 1 LITER O2 VIA NC WITH SPO2 >90%. NO ACUTE ISSUES NOTED OVERNIGHT. WILL CONTINUE TO MONITOR. CALL LIGHT WITHIN REACH.
[2024-11-11 08:55] VITALS: BP 127/70
[2024-11-11] MEDS ORDERED: Mometasone/Formoterol MDI 100/5 mcg 13 GM INH SCH (12:20)
--- NOTE | 2024-11-11 13:53 | NUR ---
Pt is alert and oriented x 3. Forgetful occasionally of ongoing events. Unkempt, foul -smelling home wheelchair and belongings. Pt himself is also unkempt, but clean. Given a full bed bath this morning due to diaphoresis. NGT in place to low intermittent suction, dark brown liquid being evacuated. Pt c/o feeling congested and having a stopped up nose. LUng sounds throughout are diminished and crackles noted. Given an incentive spirometer and encouraged in its use, at least once per hour. He demonstrated this well. States he quit smoking 32 years ago. Coughing occasionally, thick white sputum noted. Using oral suction to remove it from his mouth. Bowel tones are hypoactive, and pt states that he passed a large amount of gas this morning. Remains NPO. JOEY drains (2) on the right lower abdomen draining serosanginous drainage, small amounts. Incisions on abdomen are closed, edges approximated without drainage noted, and intact steristrips. He states that he is not really having any pain.
--- NOTE | 2024-11-11 13:59 | NUR ---
Indwelling urinary catheter d/c'd at 11:30 am today.
[2024-11-11] MEDS ORDERED: Miconazole Nitrate 2% 85 GM PWD TOP SCH (14:00)
[2024-11-11 15:38] VITALS: BP 157/78
--- NOTE | 2024-11-11 17:04 | NUR ---
While sleeping, spo2 dropped to 83%. Placed on oxygen 2 l/min to keep spo2 at least 90%.
[2024-11-11] MEDS ORDERED: Albuterol 2.5 MG/3 ML VIAL INH PRN (17:05)
--- NOTE | 2024-11-11 17:50 | NUR ---
PT c/o pain in his upper and lower back and headache. Repositioned and ice packs to painful areas for relief. Some relief, but pt asking what he can take for pain relief. He usually takes ibuprofen at home. Pt is NPO and was educated today on no more NSAIDS due to his gastric ulcer.
[2024-11-11] MEDS ORDERED: Capsaicin 0.025% Cream TOP SCH (21:00)
[2024-11-11] MEDS ORDERED: Betamethasone/Clotrimazole Crm 15 gm TOP SCH (21:00)
[2024-11-11 21:09] VITALS: BP 142/86
[2024-11-12 03:57] VITALS: BP 140/71
[2024-11-12 04:16] LABS: BASOPHILS ABSOLUTE AUTO 0.03 K/mm3 (0.00-0.23); BASOPHILS PERCENT AUTO 0 % (0-2); EOSINOPHILS ABSOLUTE AUTO 0.24 K/mm3 (0.00-0.68); EOSINOPHILS PERCENT AUTO 3 % (0-6); Hematocrit 31.9 % (37.0-53.0); Hemoglobin 10.4 g/dL (13.5-17.5); IMMATURE GRAN ABSOLUTE AUTO 0.04 K/mm3 (0.00-0.10); IMMATURE GRAN PERCENT AUTO 1 % (0-1); LYMPHOCYTES ABSOLUTE AUTO 0.44 K/mm3 (0.84-5.20); LYMPHOCYTES PERCENT AUTO 5 % (21-46); MONOCYTES ABSOLUTE AUTO 0.48 K/mm3 (0.16-1.47); MONOCYTES PERCENT AUTO 6 % (4-13); Mean Corpuscular HGB 32.9 pg (26.0-34.0); Mean Corpuscular HGB Conc 32.6 g/dL (31.5-36.5); Mean Corpuscular Volume 101 fL (80-100); Mean Platelet Volume 10.1 fL (9.1-12.4); NEUTROPHILS ABSOLUTE AUTO 7.26 K/mm3 (1.96-9.15); NEUTROPHILS PERCENT AUTO 85 % (41-73); Platelet Count 160 K/mm3 (150-400); RDW Coefficient Variation 13.1 % (11.7-14.2); RDW Standard Deviation 48.5 fL (35.1-46.3); Red Blood Cell Count 3.16 M/mm3 (4.30-5.90); White Blood Cell Count 8.49 K/mm3 (4.00-11.30)
[2024-11-12 04:38] LABS: Albumin/Globulin Ratio 0.4 (0.8-1.8); Bilirubin, Total 0.7 mg/dL (0.1-1.0); Calcium, Blood 9.4 mg/dL (8.5-10.1); Globulin, Blood 4.9 g/dL (2.2-4.0); Magnesium, Blood 2.1 mg/dL (1.6-2.4); Phosphorus, Blood 1.9 mg/dL (2.5-4.9); Potassium, Blood 4.8 mmol/L (3.5-5.5); Total Protein, Blood 6.9 g/dL (6.4-8.2)
--- NOTE | 2024-11-12 06:24 | NUR ---
SHIFT SUMMARY PATIENT ALERT AND ORIENTED X4. HAD NO COMPLAINTS OF PAIN OR SHORTNESS OF BREATH. ON ROOM AIR WITH SPO2 >90%, VITAL SIGNS STABLE. NG TUBE BECAME PARTIALLY DISLODGED REQUIRING X RAY CONFIRMATION OF PLACEMENT. DRAINS PATENT. WILL CONTINUE TO MONITOR. CALL LIGHT WITHIN REACH.
[2024-11-12 07:57] VITALS: BP 151/82
[2024-11-12 08:11] LABS: IMMATURE RETIC FRACTION 9.4 % (2.3-16.0); RETIC HGB EQUIVALENT 31.7 pg (28.20-36.60); RETICULOCYTE ABSOLUTE 0.0333 M/mm3 (0.0200-0.1100); RETICULOCYTE COUNT PERCENT 1.06 % (0.50-2.50)
--- NOTE | 2024-11-12 08:12 | NUR ---
pt arrived to room from pcu. ORIENTED TO CALL LIGHT. SUCTION SET UP FOR NGT AND ORAL SUCTION. PT DENIES ANY NEEDS AT THIS TIME.
[2024-11-12 08:32] LABS: Percent Saturation 19.2 % (20.0-50.0)
[2024-11-12] MEDS ORDERED: Sodium Phosphate 20 MM in Dextrose 5% 500 ML IV STA (08:56)
[2024-11-12] MEDS ORDERED: Insulin Human Lispro 100 Units/ML 3ML Syringe SC SCH (12:00)
[2024-11-12 13:54] VITALS: BP 154/83
[2024-11-12] MEDS ORDERED: NS 250 ML IV PRN (16:45)
--- NOTE | 2024-11-12 17:36 | NUR ---
SUMMARY NO ACUTE CHANGES SINCE ARRIVING TO UNIT FROM PACU. NG PUTTING OUT SMALL AMOUNT GREENISH BROWN FLUID. JOEY DRAINS PUTTING OUT SMALL AMOUNTS SS FLUID. PT VOIDING AND ATTENDS CHANGED T/O SHIFT. IV FLUIDS INFUSING PER ORDERS. CALL LIGHT IN REACH.
[2024-11-12 20:15] VITALS: BP 153/79
[2024-11-13] MEDS ORDERED: FentaNYL Citrate 50 MCG/ML 2 ML Injection IV PRN (01:35)
--- NOTE | 2024-11-13 04:34 | NUR ---
SHIFT SUMMARY ISREAL WAS ALERT AND FULLY ORIENTED ON ASSESMENT. PAIN WELL CONTROLLED. NG OUTPUTTING DARK GREEN BILE. JOEY DRAINS OUTPUTTING YELLOW S/S FLUID. INSCISION SITES C/D/I. PT SELF SUCTIONING SECRETIONS. PT KEPT NPO. NO ACUTE EVENTS TONIGHT NO NOTED CHANGES TO PT CONDITION.
[2024-11-13 05:23] VITALS: BP 146/84
[2024-11-13 05:23] LABS: BASOPHILS ABSOLUTE AUTO 0.03 K/mm3 (0.00-0.23); BASOPHILS PERCENT AUTO 0 % (0-2); EOSINOPHILS ABSOLUTE AUTO 0.27 K/mm3 (0.00-0.68); EOSINOPHILS PERCENT AUTO 4 % (0-6); Hematocrit 31.2 % (37.0-53.0); Hemoglobin 10.6 g/dL (13.5-17.5); IMMATURE GRAN ABSOLUTE AUTO 0.04 K/mm3 (0.00-0.10); IMMATURE GRAN PERCENT AUTO 1 % (0-1); LYMPHOCYTES ABSOLUTE AUTO 0.67 K/mm3 (0.84-5.20); LYMPHOCYTES PERCENT AUTO 9 % (21-46); MONOCYTES ABSOLUTE AUTO 0.52 K/mm3 (0.16-1.47); MONOCYTES PERCENT AUTO 7 % (4-13); Mean Corpuscular HGB 33.3 pg (26.0-34.0); Mean Corpuscular Volume 98 fL (80-100); Mean Platelet Volume 9.9 fL (9.1-12.4); NEUTROPHILS ABSOLUTE AUTO 6.19 K/mm3 (1.96-9.15); NEUTROPHILS PERCENT AUTO 80 % (41-73); Platelet Count 176 K/mm3 (150-400); RDW Coefficient Variation 12.7 % (11.7-14.2); Red Blood Cell Count 3.18 M/mm3 (4.30-5.90); White Blood Cell Count 7.72 K/mm3 (4.00-11.30)
[2024-11-13 06:44] LABS: Bun/Creatinine Ratio 27.1 (12.0-20.0); Creatinine, Blood 0.78 mg/dL (0.60-1.20); Phosphorus, Blood 1.9 mg/dL (2.5-4.9); Potassium, Blood 4.1 mmol/L (3.5-5.5)
[2024-11-13] MEDS ORDERED: Sodium Phosphate 25 MM in Dextrose 5% 500 ML IV STA (07:27)
[2024-11-13] MEDS ORDERED: Piperacillin/Tazobactam Sod 3.375 GM in NS 100 ML IV SCH (07:32)
[2024-11-13 07:39] VITALS: BP 139/81
[2024-11-13 16:27] VITALS: BP 127/73
--- NOTE | 2024-11-13 18:08 | NUR ---
SUMMARY NO ACUTE CHANGES T/O SHIFT. PT REPORTS PASSING FLATUS. NG PUTTING OUT DARK GREEN FLUID TO LIS. PT INCONTINENT AT TIMES. ATTENDS CHANGED PRN T/O SHIFT AND PT REPOSITIONED. CALL LIGHT AND ORAL SUCTION WITHIN REACH.
[2024-11-13 19:20] VITALS: BP 138/75
--- NOTE | 2024-11-14 04:49 | NUR ---
SHIFT SUMMARY ISREAL WAS ALERT AND FULLY ORIENTED ON ASSESMENT. JOEY DRAINS OUTPUTTING S/S FLUID, LAP SITES C/D/I. NO COMPLAINTS OF PAIN. PT DOING BETTER JOB USING URINAL TONIGHT. NG OUTPUTTING DARK GREEN BILE. NO ACUTE EVENTS, NO NOTED CHANGES TO PT CONDITION. PT RESTING WITH CALL LIGHT IN REACH.
[2024-11-14 04:50] VITALS: BP 142/88
[2024-11-14 05:01] LABS: BASOPHILS ABSOLUTE AUTO 0.04 K/mm3 (0.00-0.23); BASOPHILS PERCENT AUTO 1 % (0-2); EOSINOPHILS PERCENT AUTO 4 % (0-6); Hematocrit 32.2 % (37.0-53.0); IMMATURE GRAN ABSOLUTE AUTO 0.08 K/mm3 (0.00-0.10); IMMATURE GRAN PERCENT AUTO 1 % (0-1); LYMPHOCYTES ABSOLUTE AUTO 0.88 K/mm3 (0.84-5.20); LYMPHOCYTES PERCENT AUTO 11 % (21-46); MONOCYTES ABSOLUTE AUTO 0.56 K/mm3 (0.16-1.47); MONOCYTES PERCENT AUTO 7 % (4-13); Mean Corpuscular HGB 33.5 pg (26.0-34.0); Mean Corpuscular HGB Conc 34.2 g/dL (31.5-36.5); Mean Corpuscular Volume 98 fL (80-100); Mean Platelet Volume 9.6 fL (9.1-12.4); NEUTROPHILS ABSOLUTE AUTO 6.17 K/mm3 (1.96-9.15); NEUTROPHILS PERCENT AUTO 77 % (41-73); Platelet Count 191 K/mm3 (150-400); RDW Coefficient Variation 12.7 % (11.7-14.2); RDW Standard Deviation 45.8 fL (35.1-46.3); Red Blood Cell Count 3.28 M/mm3 (4.30-5.90); White Blood Cell Count 8.03 K/mm3 (4.00-11.30)
[2024-11-14 05:30] LABS: Albumin/Globulin Ratio 0.4 (0.8-1.8); Bun/Creatinine Ratio 25.1 (12.0-20.0); Calcium, Blood 9.3 mg/dL (8.5-10.1); Creatinine, Blood 0.92 mg/dL (0.60-1.20); Potassium, Blood 3.8 mmol/L (3.5-5.5)
[2024-11-14 07:15] VITALS: BP 129/76
[2024-11-14] MEDS ORDERED: Insulin Regular 100 UNIT/ML 10ML Vial SC SCH (08:00)
[2024-11-14] MEDS ORDERED: Enoxaparin 40 MG/0.4 ML SYR SC SCH (12:00)
[2024-11-14 14:42] VITALS: BP 121/80
[2024-11-14] MEDS ORDERED: Insulin Human Lispro 100 Units/ML 3ML Syringe SC SCH ×2 (18:00)
[2024-11-14 19:45] VITALS: BP 123/70
--- NOTE | 2024-11-14 19:53 | NUR ---
SUMMARY: PT IS S/P GASTRIC ULCER REPAIR. A/O, VSS TODAY.SURGICAL SITES WNL. NGT TO LIS WITH MINIMAL DARK BROWN OUTPUT. PT REPORTS PASSING SOME GAS. DENIES PAIN. PPN INFUSED. NO ACUTE SAFETY CONCERNS. PT USES CALL LIGHT TO MAKE NEEDS KNOWN.
[2024-11-14] MEDS ORDERED: Insulin Glargine-Yfgn 100 Unit/mL 3 ML SYR SC SCH ×2 (21:00)
[2024-11-15] MEDS ORDERED: Insulin Human Lispro 100 Units/ML 3ML Syringe SC SCH
[2024-11-15 04:38] VITALS: BP 131/67
[2024-11-15 05:07] LABS: BASOPHILS ABSOLUTE AUTO 0.03 K/mm3 (0.00-0.23); BASOPHILS PERCENT AUTO 0 % (0-2); EOSINOPHILS ABSOLUTE AUTO 0.34 K/mm3 (0.00-0.68); EOSINOPHILS PERCENT AUTO 4 % (0-6); Hematocrit 31.6 % (37.0-53.0); Hemoglobin 10.6 g/dL (13.5-17.5); Mean Corpuscular HGB 33.2 pg (26.0-34.0); Mean Corpuscular HGB Conc 33.5 g/dL (31.5-36.5); Mean Corpuscular Volume 99 fL (80-100); Mean Platelet Volume 9.5 fL (9.1-12.4); Platelet Count 192 K/mm3 (150-400); RDW Coefficient Variation 12.9 % (11.7-14.2); RDW Standard Deviation 46.6 fL (35.1-46.3); Red Blood Cell Count 3.19 M/mm3 (4.30-5.90); White Blood Cell Count 7.85 K/mm3 (4.00-11.30)
[2024-11-15 05:18] LABS: IMMATURE GRAN ABSOLUTE AUTO 0.12 K/mm3 (0.00-0.10); IMMATURE GRAN PERCENT AUTO 2 % (0-1); LYMPHOCYTES PERCENT AUTO 13 % (21-46); MONOCYTES ABSOLUTE AUTO 0.53 K/mm3 (0.16-1.47); MONOCYTES PERCENT AUTO 7 % (4-13); NEUTROPHILS ABSOLUTE AUTO 5.83 K/mm3 (1.96-9.15); NEUTROPHILS PERCENT AUTO 74 % (41-73)
[2024-11-15 05:50] LABS: Alanine Aminotransfer (ALT/SGP 63 U/L (12-78); Albumin/Globulin Ratio 0.4 (0.8-1.8); Alk Phos 94 U/L (50-136); Anion Gap 9 mmol/L (3-11); Aspartate Aminotrans (AST/SGOT 35 U/L (12-37); Blood Urea Nitrogen 25 mg/dL (8-24); CO2, Blood 28 mmol/L (21-32); Calcium, Blood 9.2 mg/dL (8.5-10.1); Chloride, Blood 104 mmol/L (98-108); Creatinine, Blood 0.96 mg/dL (0.60-1.20); Globulin, Blood 5.2 g/dL (2.2-4.0); Glomerular Filtration Rate 85 (60-); Glucose, Blood 234 mg/dL (70-99); Magnesium, Blood 2.2 mg/dL (1.6-2.4); Phosphorus, Blood 2.5 mg/dL (2.5-4.9); Potassium, Blood 3.8 mmol/L (3.5-5.5); Sodium, Blood 137 mmol/L (136-145); Total Protein, Blood 7.2 g/dL (6.4-8.2); Triglycerides 142 mg/dL (30-160)
--- NOTE | 2024-11-15 07:35 | NUR ---
SHIFT SUMMARY POD5- LAP ULCER REPAIR. x3 LAP SITES ACROSS ABD, INTACT & DRY. x2 JOEY DRAINS TO RLQ ABD, LABELED, PINNED TO GOWN, CLEANSED & CHANGED TEGADERM OVER DRAIN SITES. 50ML SEROUS DRAINAGE OUT DRAIN 1, 20ML SEROUS DRAINAGE OUT DRAIN 2. NGT TO R NARES W/LOW INT SX, 250ML DRK GREEN OUTPUT IN CANISTER. NGT ADHERED TO BRIDGE OF NOSE W/TEGADERM, OFFERED TO REPLACE & SECURE-PT REFUSED. REPORTS ABD & ALLOVER PAIN, MEDICATED 2x W/25MCG IV FENTANYL & PAIN LEVEL DECREASED TO 2/10. PT REPORTS PASSING FLATUS, DENIES BM. VSS. CALL LIGHT IN REACH.
[2024-11-15 08:12] VITALS: BP 140/74
--- NOTE | 2024-11-15 11:49 | NUR ---
NGT REMOVED. PT TOLERATED WELL, SIPPING ON CLEAR LIQUIDS AT THIS TIME.
[2024-11-15] MEDS ORDERED: Insulin Regular 100 UNIT/ML 10ML Vial SC SCH ×3 (12:00→18:00)
[2024-11-15] MEDS ORDERED: Insulin Human Regular 100 UNIT/ML 10ML Vial SC SCH ×3 (12:00→18:00)
[2024-11-15 14:48] VITALS: BP 122/69
[2024-11-15] MEDS ORDERED: Parenteral Electolytes 40 ML,Potassium Phosphate Dibasic 30 MM,Multivitamins 10 ML,ZINC... IV SCH (17:00)
[2024-11-15] MEDS ORDERED: Carvedilol 6.25 MG Tab PO SCH (17:00)
--- NOTE | 2024-11-15 18:04 | NUR ---
SHIFT SUMMARY POD 5 GASTRIC ULCER REPAIR JOEY DRAINS TO RLQ. SCANT AMOUNT OUT DURING SHIFT. REMAIN COMPRESSED. LAP SITES CDI. PT PASSING FLATUS DURING SHIFT. TOLERATING CLEAR LIQUIDS. EXCITED TO HAVE NGT REMOVED TODAY. PPN INFUSING PER EMAR. ENCOURAGING PT TO GET OOB, DECLINED TODAY. PAIN CONTROLLED PER EMAR.
[2024-11-15] MEDS ORDERED: OxyCODONE HCL 5 MG TAB PO PRN (18:50)
[2024-11-15] MEDS ORDERED: Acetaminophen 325 MG TABLET PO PRN (18:50)
[2024-11-15 19:34] VITALS: BP 128/75
[2024-11-16 03:40] VITALS: BP 110/61
--- NOTE | 2024-11-16 03:54 | NUR ---
SHIFT SUMMARY POD 6-LAP ULCER REPAIR. x2 JOEY RLQ, CLEANSED & REPLACED CHG TEGADERM. JOEY #1 W/10ML SEROUS DRAINAGE & JOEY #2 W/20ML SEROUS DRAINAGE OUT. PT REPORTS PASSING FLATUS, BELCHING, DENIES N/V, TOLERATING CLEAR LIQUIDS. MEDICATED W/TYLENOL & OXYCODONE FOR PAIN & PT STATES PAIN RELIEF. USING URINAL IND. REPOSITIONS SELF IN BED. CLEANSED GROIN FOLDS, COCCYX & APPLIED MEPILEX TO COCCYX. VSS. CALL LIGHT IN REACH.
[2024-11-16 06:08] LABS: BASOPHILS ABSOLUTE AUTO 0.03 K/mm3 (0.00-0.23); BASOPHILS PERCENT AUTO 1 % (0-2); EOSINOPHILS ABSOLUTE AUTO 0.28 K/mm3 (0.00-0.68); EOSINOPHILS PERCENT AUTO 4 % (0-6); Hematocrit 28.8 % (37.0-53.0); Hemoglobin 9.8 g/dL (13.5-17.5); IMMATURE GRAN ABSOLUTE AUTO 0.07 K/mm3 (0.00-0.10); IMMATURE GRAN PERCENT AUTO 1 % (0-1); LYMPHOCYTES ABSOLUTE AUTO 0.99 K/mm3 (0.84-5.20); LYMPHOCYTES PERCENT AUTO 16 % (21-46); MONOCYTES ABSOLUTE AUTO 0.28 K/mm3 (0.16-1.47); MONOCYTES PERCENT AUTO 4 % (4-13); Mean Corpuscular HGB 33.4 pg (26.0-34.0); Mean Corpuscular Volume 98 fL (80-100); Mean Platelet Volume 9.9 fL (9.1-12.4); NEUTROPHILS ABSOLUTE AUTO 4.71 K/mm3 (1.96-9.15); NEUTROPHILS PERCENT AUTO 74 % (41-73); Platelet Count 207 K/mm3 (150-400); RDW Coefficient Variation 12.9 % (11.7-14.2); RDW Standard Deviation 46.4 fL (35.1-46.3); Red Blood Cell Count 2.93 M/mm3 (4.30-5.90); White Blood Cell Count 6.36 K/mm3 (4.00-11.30)
[2024-11-16 06:37] LABS: Bun/Creatinine Ratio 24.2 (12.0-20.0); Calcium, Blood 8.8 mg/dL (8.5-10.1); Creatinine, Blood 0.95 mg/dL (0.60-1.20); Phosphorus, Blood 2.8 mg/dL (2.5-4.9); Potassium, Blood 3.9 mmol/L (3.5-5.5)
[2024-11-16 07:56] VITALS: BP 123/69
[2024-11-16 14:47] VITALS: BP 108/66
[2024-11-16] MEDS ORDERED: Insulin Human Regular 100 UNIT/ML 10ML Vial SC SCH (16:30)
[2024-11-16] MEDS ORDERED: Insulin Human Lispro 100 Units/ML 3ML Syringe SC SCH (16:30)
[2024-11-16] MEDS ORDERED: Fluticasone 0.05% Nasal Spray SCH (17:00)
--- NOTE | 2024-11-16 18:33 | NUR ---
SHIFT SUMMARY POD 5 GASTRIC ULCER REPAIR. PT UP TO CHAIR WITH THERAPY TODAY. REPORTS FEELING MUCH BETTER OVERALL. TOLERATING FULL LIQUID DIET WELL, DENIES NAUSEA. CONTINUES TO PASS FLATUS. SCANT LIQUID IN JOEY DRAINS. REMAIN PATENT AND COMPRESSED. LAP SITES CDI. USING URINAL AT BEDSIDE.
[2024-11-16 19:41] VITALS: BP 112/67
[2024-11-17 03:57] VITALS: BP 117/60
--- NOTE | 2024-11-17 05:24 | NUR ---
SHIFT SUMMARY POD 7 PERF GASTRIC ULCER REPAIR. NO ACUTE CHANGES OVERNIGHT. VSS. TOLERATING FULL LIQUID DIET, DENIES N/V. INTERMITTENT INCONT: URINAL & ATTENDS IN USE. PT REPORTS PAIN TOLERABLE, MEDICATED PER EMAR. JOEY DRAIN x2 DRAINING SEROUS FLUID. LAP SITE x3 c STERI STRIPS C/D/I. PT REPORTS PASSING FLATUS. CALL LIGHT IN REACH, BED IN LOWEST POSITION, WILL REPORT TO DAY RN.
[2024-11-17 05:48] LABS: BASOPHILS ABSOLUTE AUTO 0.03 K/mm3 (0.00-0.23); BASOPHILS PERCENT AUTO 0 % (0-2); EOSINOPHILS ABSOLUTE AUTO 0.25 K/mm3 (0.00-0.68); EOSINOPHILS PERCENT AUTO 3 % (0-6); Hematocrit 30.3 % (37.0-53.0); IMMATURE GRAN ABSOLUTE AUTO 0.06 K/mm3 (0.00-0.10); IMMATURE GRAN PERCENT AUTO 1 % (0-1); LYMPHOCYTES ABSOLUTE AUTO 0.96 K/mm3 (0.84-5.20); LYMPHOCYTES PERCENT AUTO 12 % (21-46); MONOCYTES ABSOLUTE AUTO 0.43 K/mm3 (0.16-1.47); MONOCYTES PERCENT AUTO 5 % (4-13); Mean Corpuscular HGB 32.4 pg (26.0-34.0); Mean Corpuscular Volume 98 fL (80-100); Mean Platelet Volume 10.3 fL (9.1-12.4); NEUTROPHILS ABSOLUTE AUTO 6.48 K/mm3 (1.96-9.15); NEUTROPHILS PERCENT AUTO 79 % (41-73); Platelet Count 229 K/mm3 (150-400); RDW Coefficient Variation 12.9 % (11.7-14.2); Red Blood Cell Count 3.09 M/mm3 (4.30-5.90); White Blood Cell Count 8.21 K/mm3 (4.00-11.30)
[2024-11-17 06:03] LABS: Albumin, Blood 2.1 g/dL (3.4-5.0); Anion Gap 9 mmol/L (3-11); Blood Urea Nitrogen 20 mg/dL (8-24); Bun/Creatinine Ratio 20.6 (12.0-20.0); CO2, Blood 27 mmol/L (21-32); Calcium, Blood 8.9 mg/dL (8.5-10.1); Chloride, Blood 104 mmol/L (98-108); Creatinine, Blood 0.97 mg/dL (0.60-1.20); Glomerular Filtration Rate 84 (60-); Glucose, Blood 172 mg/dL (70-99); Magnesium, Blood 2.1 mg/dL (1.6-2.4); Phosphorus, Blood 2.3 mg/dL (2.5-4.9); Potassium, Blood 4.2 mmol/L (3.5-5.5); Sodium, Blood 136 mmol/L (136-145)
[2024-11-17 07:42] VITALS: BP 139/70
[2024-11-17] MEDS ORDERED: Loratadine 10 MG Tab PO SCH (10:00)
[2024-11-17 15:59] VITALS: BP 121/70
[2024-11-17] MEDS ORDERED: Peg 400/Hypromellose/Glycerin 15 DROP/ML BTL BOTHEYES PRN (16:15)
[2024-11-17] MEDS ORDERED: Pantoprazole Sodium 40 MG Tab PO SCH (17:12)
--- NOTE | 2024-11-17 17:23 | NUR ---
SUMMARY NO ACUTE CHANGES T/O SHIFT. PT MOVING AROUND INDEPENDENTLY IN BED. VOIDING. TOLERATING FULL LIQUIDS. DR WALDRON IN THIS EVENING. GAVE VERBAL ORDERS FOR DC INFERIOR JOEY DRAIN. PT SITTING UP IN BED, CALL LIGHT IN REACH.
--- NOTE | 2024-11-17 17:41 | NUR ---
dc'd inferior renetta drain per orders.
[2024-11-17 19:26] VITALS: BP 118/76
--- NOTE | 2024-11-18 04:22 | NUR ---
SHIFT SUMMARY POD 8 PERF GASTRIC ULCER REPAIR. NO ACUTE CHANGES OVERNIGHT. VSS. TOLERATING FULL LIQUID DIET, DENIES N/V. REPORTS PASSING FLATUS, NO BM. LAP SITE x3 C/D/I. JOEY DRAIN TO RLQ c MIN SEROUS OUTPUT OVERNIGHT. VOIDING USING URINAL, ATTNDS IN USE. IND IN BED. PT REPORTS PAIN TOLERABLE, MEDICATED PER EMAR. CALL LIGHT IN REACH, BED IN LOWEST POSITION, WILL REPORT TO DAY RN.
[2024-11-18 04:41] VITALS: BP 118/66
[2024-11-18 05:57] LABS: BASOPHILS ABSOLUTE AUTO 0.04 K/mm3 (0.00-0.23); BASOPHILS PERCENT AUTO 1 % (0-2); EOSINOPHILS ABSOLUTE AUTO 0.21 K/mm3 (0.00-0.68); EOSINOPHILS PERCENT AUTO 3 % (0-6); Hematocrit 30.9 % (37.0-53.0); Hemoglobin 10.1 g/dL (13.5-17.5); IMMATURE GRAN ABSOLUTE AUTO 0.05 K/mm3 (0.00-0.10); IMMATURE GRAN PERCENT AUTO 1 % (0-1); LYMPHOCYTES ABSOLUTE AUTO 1.15 K/mm3 (0.84-5.20); LYMPHOCYTES PERCENT AUTO 15 % (21-46); MONOCYTES ABSOLUTE AUTO 0.39 K/mm3 (0.16-1.47); MONOCYTES PERCENT AUTO 5 % (4-13); Mean Corpuscular HGB 32.7 pg (26.0-34.0); Mean Corpuscular HGB Conc 32.7 g/dL (31.5-36.5); Mean Corpuscular Volume 100 fL (80-100); Mean Platelet Volume 10.5 fL (9.1-12.4); NEUTROPHILS ABSOLUTE AUTO 5.78 K/mm3 (1.96-9.15); NEUTROPHILS PERCENT AUTO 76 % (41-73); Platelet Count 251 K/mm3 (150-400); RDW Coefficient Variation 12.7 % (11.7-14.2); RDW Standard Deviation 46.9 fL (35.1-46.3); Red Blood Cell Count 3.09 M/mm3 (4.30-5.90); White Blood Cell Count 7.62 K/mm3 (4.00-11.30)
[2024-11-18 06:18] LABS: Bun/Creatinine Ratio 16.2 (12.0-20.0); Creatinine, Blood 1.05 mg/dL (0.60-1.20); Potassium, Blood 4.1 mmol/L (3.5-5.5)
[2024-11-18 07:44] VITALS: BP 141/73
[2024-11-18] MEDS ORDERED: Losartan Potassium 25 MG Tab PO SCH (14:00)
[2024-11-18 15:01] VITALS: BP 126/77
[2024-11-18] MEDS ORDERED: Sucralfate 1000MG / 10ML UD BTL PO SCH (16:30)
[2024-11-18 17:00] VITALS: BP 126/77
--- NOTE | 2024-11-18 17:26 | NUR ---
SUMMARY NO ACUTE CHANGES THIS SHIFT. PT HAD SMEAR OF STOOL IN ATTENDS AT BEGINNING OF SHIFT. PASSING FLATUS. WORKED WITH THERAPY. SMALL AMT SS DRAINAGE NOTED IN JOEY DRAIN. ADVANCING DIET PER ORDERS TO SOFT FOR DINNER. CALL LIGHT IN REACH.
[2024-11-18 20:33] VITALS: BP 113/68
[2024-11-19 05:06] VITALS: BP 130/78
--- NOTE | 2024-11-19 05:59 | NUR ---
SHIFT SUMMARY POD 9 PER GASTRIC ULCER REPAIR. NO ACUTE CHANGES OVERNIGHT. VSS. TOLERATING SOFT DIET, DENIES N/V. REPORTS PASSING FLATUS, NO BM. LAP SIT x3 C/D/I. JOEY DRAIN TO RLQ c MIN SEROUS OUTPUT OVERNIGHT. VOIDING USING URINAL, ATTENDS IN USE. IND IN BED, WHEELCHAIR BOUND BASELINE. PT REPORTS PAIN TOLERABLE, MEDICATED PER EMAR. CALL LIGHT IN REACH, BED IN LOWEST POSITION, WILL REPORT DAY RN.
[2024-11-19 06:06] LABS: BASOPHILS ABSOLUTE AUTO 0.04 K/mm3 (0.00-0.23); BASOPHILS PERCENT AUTO 1 % (0-2); EOSINOPHILS ABSOLUTE AUTO 0.19 K/mm3 (0.00-0.68); EOSINOPHILS PERCENT AUTO 3 % (0-6); Hematocrit 30.3 % (37.0-53.0); Hemoglobin 10.1 g/dL (13.5-17.5); IMMATURE GRAN ABSOLUTE AUTO 0.05 K/mm3 (0.00-0.10); IMMATURE GRAN PERCENT AUTO 1 % (0-1); LYMPHOCYTES ABSOLUTE AUTO 1.15 K/mm3 (0.84-5.20); LYMPHOCYTES PERCENT AUTO 15 % (21-46); MONOCYTES ABSOLUTE AUTO 0.37 K/mm3 (0.16-1.47); MONOCYTES PERCENT AUTO 5 % (4-13); Mean Corpuscular HGB 33.4 pg (26.0-34.0); Mean Corpuscular HGB Conc 33.3 g/dL (31.5-36.5); Mean Corpuscular Volume 100 fL (80-100); Mean Platelet Volume 10.1 fL (9.1-12.4); NEUTROPHILS ABSOLUTE AUTO 5.74 K/mm3 (1.96-9.15); NEUTROPHILS PERCENT AUTO 76 % (41-73); Platelet Count 237 K/mm3 (150-400); RDW Coefficient Variation 12.7 % (11.7-14.2); RDW Standard Deviation 46.5 fL (35.1-46.3); Red Blood Cell Count 3.02 M/mm3 (4.30-5.90); White Blood Cell Count 7.54 K/mm3 (4.00-11.30)
[2024-11-19 06:51] LABS: Bun/Creatinine Ratio 13.4 (12.0-20.0); Calcium, Blood 8.9 mg/dL (8.5-10.1); Creatinine, Blood 1.12 mg/dL (0.60-1.20); Potassium, Blood 4.1 mmol/L (3.5-5.5)
[2024-11-19 07:31] VITALS: BP 123/74
--- NOTE | 2024-11-19 16:55 | NUR ---
DISCHARGE: THIS RN REMOVED JOEY DRAIN AT RLQ AND APPLIED STERI STRIP WITH GAUZE AND TEGADERM PER ORDER. PT TOLERATED WELL. REPORT PASSED TO CHAVEZ CADE AT ABOUT 1545. TRANSPORT HERE FOR PT AT 1600. PT LEFT UNIT WITH PACKET AND OWN WHEELCHAIR.
== END 2024-11-19 16:09 | DRG 853 ==
LOC: ER 17:55 → SURS 11-10 02:29 → PCU 11-10 02:29 → SURS 11-12 07:58
PROVIDERS: Family Medicine; Nurse Anesthetist, Certified Registered; Physician Assistant; Student in an Organized Health Care Education/Training Program; Surgery; ADMIT Internal Medicine
PROC: 0DH67UZ Insertion of Feeding Device into Stomach, Via Natural or Artificial Opening (ICD-10-PCS; 2024-11-10)
PROC: 0DQ64ZZ Repair Stomach, Percutaneous Endoscopic Approach (ICD-10-PCS; 2024-11-10)
PROC: 02HV33Z Insertion of Infusion Device into Superior Vena Cava, Percutaneous Approach (ICD-10-PCS; 2024-11-10)
PROC: 0W9G3ZZ Drainage of Peritoneal Cavity, Percutaneous Approach (ICD-10-PCS; 2024-11-10)
PROC: 8E0W3CZ Robotic Assisted Procedure of Trunk Region, Percutaneous Approach (ICD-10-PCS; 2024-11-10)
PROC: 3E0436Z Introduction of Nutritional Substance into Central Vein, Percutaneous Approach (ICD-10-PCS; 2024-11-10)
PROC: 0DXU4ZW Transfer Omentum to Abdominal Region, Percutaneous Endoscopic Approach (ICD-10-PCS; principal; 2024-11-10 02:30)
PROC: 3E03329 Introduction of Other Anti-infective into Peripheral Vein, Percutaneous Approach (ICD-10-PCS; 2024-11-13)
DX: A40.8 Other streptococcal sepsis (principal); J96.01 Acute respiratory failure with hypoxia; K25.5 Chronic or unspecified gastric ulcer with perforation; K65.1 Peritoneal abscess; K65.3 Choleperitonitis; F10.239 Alcohol dependence with withdrawal, unspecified; N17.9 Acute kidney failure, unspecified; I13.0 Hypertensive heart and chronic kidney disease with heart failure and stage 1 through stage 4 chronic kidney disease, or unspecified chronic kidney disease; I50.22 Chronic systolic (congestive) heart failure; R65.20 Severe sepsis without septic shock; E87.5 Hyperkalemia; I44.7 Left bundle-branch block, unspecified; E11.40 Type 2 diabetes mellitus with diabetic neuropathy, unspecified; E78.5 Hyperlipidemia, unspecified; E11.39 Type 2 diabetes mellitus with other diabetic ophthalmic complication; H42 Glaucoma in diseases classified elsewhere; J44.9 Chronic obstructive pulmonary disease, unspecified; Z96.631 Presence of right artificial wrist joint; E66.9 Obesity, unspecified; E11.51 Type 2 diabetes mellitus with diabetic peripheral angiopathy without gangrene; I48.91 Unspecified atrial fibrillation; E11.621 Type 2 diabetes mellitus with foot ulcer; L97.519 Non-pressure chronic ulcer of other part of right foot with unspecified severity; D63.8 Anemia in other chronic diseases classified elsewhere; E87.6 Hypokalemia; E83.39 Other disorders of phosphorus metabolism; R53.83 Other fatigue; Z68.29 Body mass index [BMI] 29.0-29.9, adult; Z79.899 Other long term (current) drug therapy; Z79.891 Long term (current) use of opiate analgesic; Z79.2 Long term (current) use of antibiotics; Z79.85 Long-term (current) use of injectable non-insulin antidiabetic drugs; Z79.4 Long term (current) use of insulin; Z79.84 Long term (current) use of oral hypoglycemic drugs; Z88.8 Allergy status to other drugs, medicaments and biological substances; Z87.891 Personal history of nicotine dependence; Z89.412 Acquired absence of left great toe; Z86.14 Personal history of Methicillin resistant Staphylococcus aureus infection
CPT/HCPCS: 36415; 71045; 71046; 74177; 74240; 80048; 80053; 80069; 81001; 82040; 82607; 82728; 82746; 82947; 83036; 83540; 83550; 83690; 83735; 84100; 84478; 84484; 85025; 85045; 87040; 93005; 93010; 93306; 94640; 94664; 94760; 94762; 96365; 96375; 97110; 97112; 97161; 97530; 99285-25; A9270; C1751; J0692; J1171; J1450; J1650; J1815; J2371; J2405; J2470; J2543; J3010; J3411; J3475; J7030; J7050; J7060; Q9963; Q9967

== ENCOUNTER 2024-11-23 09:18 | Emergency (ER) | payer OTHER ==
[~2024-11-23] VITALS: Ht 193 cm; Wt 111.6 kg
[~2024-11-23 09:18] MED LIST changes: +ATORVASTATIN CA20 MG PO; +BREO ELLIPTA 11 EAC1 INH; +METFORMIN HCL500 M2 PO; +MONT10T PO
[2024-11-23] MEDS ORDERED: ACET325 PO (11:35)
[2024-11-23] MEDS ORDERED: Robaxin750 MG PO (11:36)
[2024-11-23] MEDS ORDERED: OMEP20ER PO (11:36)
[2024-11-23] MEDS ORDERED: SUCR1 PO (11:37)
[2024-11-23 11:42] LABS: BASOPHILS ABSOLUTE AUTO 0.06 K/mm3 (0.00-0.23); BASOPHILS PERCENT AUTO 1 % (0-2); EOSINOPHILS ABSOLUTE AUTO 0.32 K/mm3 (0.00-0.68); EOSINOPHILS PERCENT AUTO 4 % (0-6); Hematocrit 34.8 % (37.0-53.0); Hemoglobin 11.3 g/dL (13.5-17.5); IMMATURE GRAN ABSOLUTE AUTO 0.02 K/mm3 (0.00-0.10); IMMATURE GRAN PERCENT AUTO 0 % (0-1); LYMPHOCYTES ABSOLUTE AUTO 1.29 K/mm3 (0.84-5.20); LYMPHOCYTES PERCENT AUTO 15 % (21-46); MONOCYTES ABSOLUTE AUTO 0.48 K/mm3 (0.16-1.47); MONOCYTES PERCENT AUTO 6 % (4-13); Mean Corpuscular HGB 32.4 pg (26.0-34.0); Mean Corpuscular HGB Conc 32.5 g/dL (31.5-36.5); Mean Corpuscular Volume 100 fL (80-100); Mean Platelet Volume 9.8 fL (9.1-12.4); NEUTROPHILS ABSOLUTE AUTO 6.37 K/mm3 (1.96-9.15); NEUTROPHILS PERCENT AUTO 75 % (41-73); Platelet Count 393 K/mm3 (150-400); RDW Coefficient Variation 12.6 % (11.7-14.2); RDW Standard Deviation 46.5 fL (35.1-46.3); Red Blood Cell Count 3.49 M/mm3 (4.30-5.90); White Blood Cell Count 8.54 K/mm3 (4.00-11.30)
[2024-11-23 12:03] LABS: Albumin, Blood 2.4 g/dL (3.4-5.0); Albumin/Globulin Ratio 0.4 (0.8-1.8); Bilirubin, Total 0.5 mg/dL (0.1-1.0); Bun/Creatinine Ratio 13.9 (12.0-20.0); Creatinine, Blood 0.93 mg/dL (0.60-1.20); Globulin, Blood 5.9 g/dL (2.2-4.0); Potassium, Blood 4.5 mmol/L (3.5-5.5); Total Protein, Blood 8.3 g/dL (6.4-8.2)
[2024-11-23 14:26] VITALS: BP 127/74
[2024-11-23] MEDS ORDERED: TRAM50 PO (16:27)
== END 2024-11-23 18:30 | disposition home or self-care (01) ==
LOC: ER 09:18
PROVIDERS: Emergency Medicine
DX: S39.011A Strain of muscle, fascia and tendon of abdomen, initial encounter (principal); E11.9 Type 2 diabetes mellitus without complications; X58.XXXA Exposure to other specified factors, initial encounter; Z79.51 Long term (current) use of inhaled steroids; Z79.899 Other long term (current) drug therapy; Z79.84 Long term (current) use of oral hypoglycemic drugs; Z88.8 Allergy status to other drugs, medicaments and biological substances
CPT/HCPCS: 74150; 74177; 80053; 83690; 85025; Q9967

== ENCOUNTER 2024-12-22 11:03 | Inpatient (IN) | payer OTHER ==
[~2024-12-22] VITALS: Ht 193 cm; Wt 112.4 kg
[2024-12-22] VITALS (7 sets, daily range): BP systolic 50–123; BP diastolic 52–67
[~2024-12-22 11:03] MED LIST changes: +OMEP20ER PO; +Robaxin750 MG PO; +SUCR1 PO; +TRAM50 PO
[2024-12-22 12:46] LABS: BASOPHILS ABSOLUTE AUTO 0.03 K/mm3 (0.00-0.23); BASOPHILS PERCENT AUTO 0 % (0-2); EOSINOPHILS ABSOLUTE AUTO 0.27 K/mm3 (0.00-0.68); EOSINOPHILS PERCENT AUTO 4 % (0-6); Hematocrit 36.5 % (37.0-53.0); Hemoglobin 12.1 g/dL (13.5-17.5); IMMATURE GRAN ABSOLUTE AUTO 0.02 K/mm3 (0.00-0.10); IMMATURE GRAN PERCENT AUTO 0 % (0-1); LYMPHOCYTES ABSOLUTE AUTO 0.83 K/mm3 (0.84-5.20); LYMPHOCYTES PERCENT AUTO 11 % (21-46); MONOCYTES ABSOLUTE AUTO 0.41 K/mm3 (0.16-1.47); MONOCYTES PERCENT AUTO 6 % (4-13); Mean Corpuscular HGB 32.3 pg (26.0-34.0); Mean Corpuscular HGB Conc 33.2 g/dL (31.5-36.5); Mean Corpuscular Volume 97 fL (80-100); Mean Platelet Volume 10.5 fL (9.1-12.4); NEUTROPHILS ABSOLUTE AUTO 5.73 K/mm3 (1.96-9.15); NEUTROPHILS PERCENT AUTO 79 % (41-73); Platelet Count 170 K/mm3 (150-400); RDW Coefficient Variation 12.3 % (11.7-14.2); RDW Standard Deviation 44.3 fL (35.1-46.3); Red Blood Cell Count 3.75 M/mm3 (4.30-5.90); White Blood Cell Count 7.29 K/mm3 (4.00-11.30)
[2024-12-22 12:55] LABS: Albumin, Blood 3.3 g/dL (3.4-5.0); Albumin/Globulin Ratio 0.6 (0.8-1.8); Bilirubin, Total 0.7 mg/dL (0.1-1.0); Bun/Creatinine Ratio 30.2 (12.0-20.0); Calcium, Blood 9.7 mg/dL (8.5-10.1); Creatinine, Blood 2.05 mg/dL (0.60-1.20); Globulin, Blood 5.4 g/dL (2.2-4.0); Potassium, Blood 3.7 mmol/L (3.5-5.5); Total Protein, Blood 8.7 g/dL (6.4-8.2)
[2024-12-22] MEDS ORDERED: NS 1,000 ML IV SCH (13:05)
[2024-12-22 14:30] LABS: International Normalized Ratio 1.05; Prothrombin Time Results 11.2 Sec (9.7-11.5)
[2024-12-22] MEDS ORDERED: Ondansetron HCl 2 MG / ML 2ML Vial IV PRN (15:55)
[2024-12-22] MEDS ORDERED: Morphine Sulfate 4 MG/1 ML Injection IV PRN (15:55)
[2024-12-22] MEDS ORDERED: FLU VACC TS2024-25(6MOS UP)/PF 45 MCG/0.5 ML SYRINGE IM SCH (15:55)
[2024-12-22] MEDS ORDERED: Heparin Sodium 5000 Units/ML 1ML MDV IV ONE (16:10)
[2024-12-22] MEDS ORDERED: Heparin Sodium,Porcine/0.5 NS 500 ML IV SCH (16:10)
[2024-12-22] MEDS ORDERED: Pantoprazole Sodium 40 MG Injection IV SCH (16:30)
[2024-12-22] MEDS ORDERED: Acetaminophen 325 MG TABLET PO PRN (16:40)
[2024-12-22] MEDS ORDERED: Albuterol 2.5 MG/3 ML VIAL INH PRN (16:40)
[2024-12-22] MEDS ORDERED: TraMADol HCl 50 MG Tab PO PRN (16:45)
[2024-12-22] MEDS ORDERED: Mometasone/Formoterol MDI 200/5 mcg 13 GM INH SCH (16:55)
[2024-12-22] MEDS ORDERED: Carvedilol 6.25 MG Tab PO SCH (17:00)
[2024-12-22] MEDS ORDERED: Sucralfate 1000MG / 10ML UD BTL PO SCH (17:30)
[2024-12-22] MEDS ORDERED: Lactated Ringer's 500 ML IV SCH (20:45)
[2024-12-22] MEDS ORDERED: Lactated Ringer's 1,000 ML IV SCH ×2 (20:45→21:25)
[2024-12-22] MEDS ORDERED: Midodrine 5 MG Tab PO PRN (20:45)
[2024-12-22] MEDS ORDERED: Methocarbamol 500 MG Tab PO SCH (21:00)
[2024-12-22] MEDS ORDERED: Sennosides 8.6 MG Tab PO SCH (21:00)
[2024-12-22] MEDS ORDERED: Insulin Human Lispro 100 Units/ML 3ML Syringe SC SCH (21:00)
[2024-12-23] VITALS (17 sets, daily range): BP systolic 91–126; BP diastolic 54–111
[2024-12-23] MEDS ORDERED: Dose Adjust by Pharmacy XX STA ×3 (00:23→13:27)
--- NOTE | 2024-12-23 00:39 | NUR ---
AOC: PATIENT IS ALERT AND ORIENTED X 4 INFUSING HEPARIN AT 18U. PATIENT WHEN HELPED TO BSC HAD AN EPISODE OF ORTHOSTATIC DIZZINESS AND DECREASED BLOOD PRESSURE, 1 X EPISODE OF EMESIS, CALL TO RESIDENT SEE NEW ORDERS OF LR BOLUS ONE TIME MIDODRINE AND MAINTANENCE LR. PATIENT WITH SIGNIFICANT IMPROVEMENT WITH BOLUS THAN TAPERED LOWER ON BP MIDODRINE THAN GIVEN, HEPARIN HAS BEEN DECREASED TO 17 UNITS. ORDER FOR SS INSULIN OBTAINED FROM RESIDENT, COVERAGE NOT INDICATED FOR HS DOSING FROM THIS RN. IS NOW NPO SINCE 0000 FOR POTENTIAL THROMBECTOMY BY IR FOR LLE DVT, SEND OUT LABS PUSHED TO 0600 FOR FASTING PREFERRED LAB. PATIENT HAD A POTENTIALLY ADVANTAGOUS STOOL. CALL TO RESIDENT FOR GI PANEL. PATIENT VOIDING DURING BOWEL MOVEMENT, BLOOD PRESSURE CURRENTLY MAP >65. MONITORING CLOSE. LACTIC DID INCREASE AM BENIGNO FROM RESIDENT. NEW IV OBTAINED LFA INFUSING 75 OF LR. PATIENT ABLE TO MAKE NEEDS KNOWN, ON RA SPO2 >95% NO ACUTE DISTRESS NOTED AT THIS TIME. PLAN OF CARE CONTINUES/
[2024-12-23] MEDS ORDERED: Midodrine 5 MG Tab PO PRN (02:20)
[2024-12-23 03:38] LABS: BASOPHILS ABSOLUTE AUTO 0.04 K/mm3 (0.00-0.23); BASOPHILS PERCENT AUTO 1 % (0-2); EOSINOPHILS ABSOLUTE AUTO 0.22 K/mm3 (0.00-0.68); EOSINOPHILS PERCENT AUTO 4 % (0-6); Hemoglobin 10.1 g/dL (13.5-17.5); IMMATURE GRAN ABSOLUTE AUTO 0.02 K/mm3 (0.00-0.10); IMMATURE GRAN PERCENT AUTO 0 % (0-1); LYMPHOCYTES ABSOLUTE AUTO 1.19 K/mm3 (0.84-5.20); LYMPHOCYTES PERCENT AUTO 21 % (21-46); MONOCYTES PERCENT AUTO 7 % (4-13); Mean Corpuscular HGB 32.9 pg (26.0-34.0); Mean Corpuscular HGB Conc 33.7 g/dL (31.5-36.5); Mean Corpuscular Volume 98 fL (80-100); Mean Platelet Volume 10.3 fL (9.1-12.4); NEUTROPHILS ABSOLUTE AUTO 3.71 K/mm3 (1.96-9.15); NEUTROPHILS PERCENT AUTO 67 % (41-73); Platelet Count 123 K/mm3 (150-400); RDW Coefficient Variation 12.4 % (11.7-14.2); RDW Standard Deviation 44.6 fL (35.1-46.3); Red Blood Cell Count 3.07 M/mm3 (4.30-5.90); White Blood Cell Count 5.58 K/mm3 (4.00-11.30)
[2024-12-23 04:10] LABS: Albumin, Blood 2.7 g/dL (3.4-5.0); Albumin/Globulin Ratio 0.6 (0.8-1.8); Bilirubin, Total 0.7 mg/dL (0.1-1.0); Bun/Creatinine Ratio 32.4 (12.0-20.0); Calcium, Blood 8.6 mg/dL (8.5-10.1); Creatinine, Blood 1.79 mg/dL (0.60-1.20); Globulin, Blood 4.3 g/dL (2.2-4.0); Potassium, Blood 3.6 mmol/L (3.5-5.5)
--- NOTE | 2024-12-23 04:47 | NUR ---
EOS: EARLIER IN THE SHIFT MIDODRINE STARTED TO WEAR OFF, INFORMED RESIDENT, PATIETN WITH 1 MORE MIDODRINE. PATIENT OVERALL APPEARS TO BE IMPROVING. LEAST AMOUNT OF ORTHOSTATIC SYMPTOMS WHEN SYSTOLIC ABOVE 100. GI PANEL PENDING, PATIENT SLEPT WELL MOST OF THE SHIFT, IMPROVED URINE OUTPUT. PATIENT DID ENDORSES LOW QUADRANT BELLY PAIN WILL POSS TO DAY RN, ABD CT [facility] NO ACUTE CONCERN PLAN OF CARE CONTINUES SPO2 >95%ON RA WITH SPOT CHECKS.
[2024-12-23 07:46] LABS: Campylobacter Sp Not Detected (NOT DETECT)
[2024-12-23 07:47] LABS: E. Coli O157 Not Detected (NOT DETECT); Enteroaggregative E. coli-EAEC Not Detected (NOT DETECT); Enteropathogenic E. coli-EPEC Not Detected (NOT DETECT); Enterotoxigenic E. coli-ETEC Not Detected (NOT DETECT); Plesiomonas Shigelloides Not Detected (NOT DETECT); Salmonella Sp Not Detected (NOT DETECT); Shiga Toxin-prod E. coli-STEC Not Detected (NOT DETECT); Vibrio Cholerae Not Detected (NOT DETECT); Vibrio Sp Not Detected (NOT DETECT); Yersinia Enterocolitica Not Detected (NOT DETECT)
[2024-12-23 07:48] LABS: Adenovirus F 40/41 Not Detected (NOT DETECT); Astrovirus Not Detected (NOT DETECT); Cryptosporidium Not Detected (NOT DETECT); Cyclospora Cayetanensis Not Detected (NOT DETECT); Entamoeba Histolytica Not Detected (NOT DETECT); Giardia Lamblia Not Detected (NOT DETECT); Norovirus GI/GII Not Detected (NOT DETECT); Rotavirus A Not Detected (NOT DETECT); Sapovirus Not Detected (NOT DETECT); Shigella/Enteroin E. coli-EIEC Not Detected (NOT DETECT)
[2024-12-23] MEDS ORDERED: Atorvastatin 10 MG Tab PO SCH (09:00)
[2024-12-23] MEDS ORDERED: NS 1,000 ML IV SCH (09:00)
[2024-12-23] MEDS ORDERED: Vancomycin HCl 125 MG Cap PO SCH (09:00)
--- NOTE | 2024-12-23 17:59 | NUR ---
SHIFT SUMMARY PT IS ALERT AND ORIENTED X 4, HE HAS BEEN BEDREST DURING SHIFT W/ EXCEPTION OF 2-PERSON BEDSIDE COMMODE ASSISTANCE. VITAL SIGNS STABLE, BP NOTED TO BE SOFT W/ SBP 105-117, COREG HELD DURING SHIFT DUE TOO SBP PARAMETER IN EMAR ORDER. PER TELE MONITORING, HR NOTED TO BE IN SINUS RYTHM W/ LBBB. COSMETIC MANAGER NOTIFIED THIS RN THAT THERE WAS SLIGHT ST ELEVATION NOTED ON RYTHM STRIP, DR. BRADFORD MADE AWARE BY THIS RN, ECG COMPLETED AND IS IN PT CHART. PT HAS DENIED FEELINGS OF CHEST PAIN/PRESSURE, SOB, LIGHTHEADEDNESS/DIZZINESS. LLE PEDAL PULSE HAS BEEN STRONG, HE HAS DENIED PAIN IN LLE. HE REPORTED NAUSEA THIS AM, VOMITTED VERY SCANT AMOUNT AND THEN REPORTED FEELING NAUSEA ALLEVIATED, HE HAS SINCE HAD GOOD PO INTAKE. HEPARIN IS INFUSING PER EMAR ORDERS. CALL LIGHT IS W/IN REACH.
[2024-12-23] MEDS ORDERED: Miconazole Nitrate 2% 85 GM PWD TOP SCH (21:00)
[2024-12-24] VITALS (14 sets, daily range): BP systolic 104–124; BP diastolic 60–80
[2024-12-24 04:48] LABS: Hematocrit 29.3 % (37.0-53.0); Hemoglobin 9.8 g/dL (13.5-17.5); Mean Corpuscular HGB 31.8 pg (26.0-34.0); Mean Corpuscular HGB Conc 33.4 g/dL (31.5-36.5); Mean Corpuscular Volume 95 fL (80-100); Platelet Count 140 K/mm3 (150-400); RDW Coefficient Variation 12.4 % (11.7-14.2); RDW Standard Deviation 43.1 fL (35.1-46.3); Red Blood Cell Count 3.08 M/mm3 (4.30-5.90); White Blood Cell Count 5.09 K/mm3 (4.00-11.30)
[2024-12-24 05:13] LABS: Calcium, Blood 9.1 mg/dL (8.5-10.1); Creatinine, Blood 1.41 mg/dL (0.60-1.20); Potassium, Blood 3.8 mmol/L (3.5-5.5)
--- NOTE | 2024-12-24 05:45 | NUR ---
SHIFT SUMMARY PT A&O X4, CALM, COOPERATIVE TO CARE. SINUS RHYTHM 80'S, DENIES CP/PRESSURE, NUMB/TINGLING, SBP STABLE. O2 >92% ON RA, DENIES SOB AT THIS TIME. PT WITH REDNESS/SWELLING IN THE LLE R/T DVT. PT NPO AT 0000 FOR PROCEDURE IN THE AM. H ENIES ANY QUESTIONS OR CONCERNS AT THIS TIME. WILL MONITOR PT AND REPORT TO ONCOMING NURSE.
--- NOTE | 2024-12-24 05:50 | NUR ---
SHIFT SUMMARY PT A&O X4, COOPERATIVE TO CARE. HR IN THE 100'S, SINUS TACH, DENIES CP/PRESSURE, NUMB/TINGLING, SBP SOFT IN THE 90'S, PT MEDICAED PER [facility]. 02 >92% ON 3L VIA NC, PT NOT ON 02 AT BASELINE. PT SOB WITH EXERTION. SHALLOW RSPIRATIONS, RR 22-24. PT HAD A BM THIS SHIFT. DENIES N/V T/O SHIFT. ABD DISTENDED, TENDER TO THE TOUCH. +BS. URINE DARK ORANGE. PT WITH PAIN IN THE BACK/RIGHT SHOULDER/HEADACHE. MEDICATED WITH TRAMADOL. PT HAD RELIEF FOR SHORT PERIOD OF TIME, PROVIDER CALLED ORDER PLACED FOR ANOTHER 50MG OF TRAMADOL. PT RESTING IN BED AT THIS TIME. WILL MONITOR PT AND REPORT TO ONCOMING NURSE.
[2024-12-24] MEDS ORDERED: Heparin Sodium 1000 Units/ML 10ML MDV ONE ×3 (07:44→10:11)
[2024-12-24] MEDS ORDERED: NS 1,000 ML IV ONE ×2 (07:44→07:46)
[2024-12-24] MEDS ORDERED: Midazolam HCl 1MG / ML 2ML Vial ONE ×2 (07:46→09:48)
[2024-12-24] MEDS ORDERED: FentaNYL Citrate 50 MCG/ML 2 ML Injection ONE ×2 (07:46→09:48)
--- NOTE | 2024-12-24 08:15 | NUR ---
left for offset label rewinder patient left for offset label rewinder approx 0810 via pcu bed for thrombectomy. vital signs stable. tele sinus rhythm 80s. patient left in no distress.
--- NOTE | 2024-12-24 08:40 | NUR ---
am note this rn assumed care at 0700. vital signs stable. patient is alert and oriented x4. neuro is intact. perrla. patient is wheelchair at baseline, but able to use two person assist to the bedside comode. patient denies pain, chest pain/pressure, or shortness of breath. patient left lower extremitiy red in coloration due to DVT, but is not painful. see shift assessment for further detials. patient left for thrombectomy at 0810. heparin drip stopped for procedure and this rn called pharmacy to update when it stopped.
[2024-12-24] MEDS ORDERED: NS 500 ML IV ONE (10:11)
--- NOTE | 2024-12-24 11:52 | NUR ---
update-return from research laboratory specialist patient returned from research laboratory specialist with access site on right IJ and behind left popliteal. both access sites soft no hematoma no bleeding. vital signs stable
[2024-12-24] MEDS ORDERED: Apixaban 5 MG Tab PO SCH (13:00)
--- NOTE | 2024-12-24 17:31 | NUR ---
SHIFT SUMMARY patient vitals remain stable. right IJ and left popliteal site non tender and no hematoma. no acute changes this shift. switced to oral anticoagulant this afternoon per orders. plan remains up to date
[2024-12-24 19:48] LABS: HOMOCYSTEINE, TOTAL 30 umol/L (0-15)
[2024-12-24 21:07] LABS: PROTEIN S AG FREE 100 % (74-147)
[2024-12-24 21:44] LABS: CARDIOLIPIN ANTIBODY IGG <10 GPL (<=14); CARDIOLIPIN ANTIBODY IGM <10 MPL (<=12)
[2024-12-25] LABS: APC RESISTANCE 3.25 (>=2.00); FACTOR V LEIDEN BY PCR Not Done; FACV REF SPECIMEN Not Done
[2024-12-25 03:23] VITALS: BP 123/68
[2024-12-25 04:16] LABS: B2GLYCOPROTEIN 1, IGG ANTIBODY <10 SGU (<=20); B2GLYCOPROTEIN 1, IGM ANTIBODY <10 SMU (<=20)
[2024-12-25 04:16] LABS: Hematocrit 28.2 % (37.0-53.0); Hemoglobin 9.3 g/dL (13.5-17.5); Mean Corpuscular Volume 97 fL (80-100); Platelet Count 131 K/mm3 (150-400); RDW Coefficient Variation 12.3 % (11.7-14.2); RDW Standard Deviation 43.9 fL (35.1-46.3); Red Blood Cell Count 2.91 M/mm3 (4.30-5.90); White Blood Cell Count 5.07 K/mm3 (4.00-11.30)
[2024-12-25 04:45] LABS: Bun/Creatinine Ratio 27.6 (12.0-20.0); Creatinine, Blood 1.23 mg/dL (0.60-1.20)
--- NOTE | 2024-12-25 06:05 | NUR ---
SHIFT SUMMARY PT ALERT AND ORIENTED X4, FOLLOWS COMMANDS, ABLE TO MAKE NEEDS KNOWN, VSS, AFEBRILE, PIV X2 PATENT, VOIDS WITHOUT DIFFICULTY, MEDICATED X2 WITH TYLENOL AND X1 WITH TRAMADOL FOR C/O PAIN TO BACK AND LLE, EFFECTIVE FOR PAIN, LLE +2 EDEMA, NOTED RIGHT BKA, DRESSING TO RIGHT IJ ACCESS SITE CDI, LINE REMAINS TO LEFT POPLITEAL SUTURED IN AND CLEAR TEGADERM PATENT, CDI, SIDE RAILS UP X2, URINAL WITH IN REACH ,CALL LIGHT IN REACH
[2024-12-25 07:32] VITALS: BP 115/65
--- NOTE | 2024-12-25 07:43 | NUR ---
ASSUMPTION NOTE: THIS RN TO ASSUME CARE. PATIENT IS SITING UP IN BED WATCHING TV. VITAL SIGNS TAKEN AND PATIENT STABLE. GOT TWO UNITS OF INSULIN PER EMAR. PATIENT DENIED CHEST PAIN/PRESSRE OR FEELING SOB. HAS CALL LIGHT WITHIN REACH AND BED IN LOWEST POSITION.
--- NOTE | 2024-12-25 09:40 | NUR ---
TALKED TO NURSE: MD BRADFORD FOUND NURSE AND STATED PENDING PT EVALUATION PATIENT WILL DISCHARGE TODAY OR TOMORROW.
[2024-12-25 11:24] VITALS: BP 126/73
[2024-12-25 12:38] LABS: PROTEIN C FUNCTIONAL 126 % (83-168)
[2024-12-25 16:31] LABS: ANTITHROMBIN, ENZYM (ACTIVITY) 91 % (76-128)
[2024-12-25 16:33] VITALS: BP 137/118
--- NOTE | 2024-12-25 17:23 | NUR ---
SHIFT SUMMARY: PATIENT IS ALERT AND ORIENTED X4 AND COOPERATIVE WITH HIS CARE. IS ABLE TO MAKE NEEDS KNOWN AND USES CALL LIGHT APPROIRAETLY. PATIENT IS ON TELE SHOWING SINUS WITH RATE IN 80'S. PATIENT WILL BE DISCHARGED TOMORROW PENDING INSURANCE TO [facility]PT [facility]. PATIENT WORKED WITH PHYSICAL THERAPY TODAY AND DID GOOD, IS 1 PERSON, STANDS AND PIVOTS AND USES WHEEL CHAIR AT BASELINE. PATIENTS FRIEND CAME TO VISIT, BLOOD SUGARS WERE COVERED PER EMAR. ONE LINE IN THE POPITEAL LEFT LEG WAS REMOVED BY AND THE OTHER ONE WILL BE REMOVED TOMORROW PRIOR TO DISCHARGE DUE TO IT BLEEDING SLIGHTLY. PATIENT IN BED WATCHING TV CURRENTLY DOES NOT EXPRESS ANY NEEDS AT THIS TIME. AWARE THAT BOILER ASSISTANT OPERATOR RN WILL BE IN SHORTLY AND WE WILL DO BEDSIDE SHIFT REPORT.
[2024-12-25 20:53] VITALS: BP 124/70
[2024-12-25 23:45] VITALS: BP 119/68
[2024-12-26 04:50] VITALS: BP 120/65
[2024-12-26 05:26] LABS: Hematocrit 26.8 % (37.0-53.0); Hemoglobin 8.7 g/dL (13.5-17.5); Mean Corpuscular HGB 31.6 pg (26.0-34.0); Mean Corpuscular HGB Conc 32.5 g/dL (31.5-36.5); Mean Corpuscular Volume 98 fL (80-100); Mean Platelet Volume 10.4 fL (9.1-12.4); Platelet Count 125 K/mm3 (150-400); RDW Coefficient Variation 12.4 % (11.7-14.2); RDW Standard Deviation 44.7 fL (35.1-46.3); Red Blood Cell Count 2.75 M/mm3 (4.30-5.90); White Blood Cell Count 6.08 K/mm3 (4.00-11.30)
[2024-12-26 06:00] LABS: Bun/Creatinine Ratio 23.2 (12.0-20.0); Calcium, Blood 9.3 mg/dL (8.5-10.1); Creatinine, Blood 1.12 mg/dL (0.60-1.20)
--- NOTE | 2024-12-26 06:18 | NUR ---
SHIFT SUMMARY PT A&O X4, CALM, COOPERATIVE TO CARE. HR IN THE 90'S, SINUS RHYTHM, HE DENIES CP/PRESSURE, NUMB/TINGLING, SBP STABLE. O2 >92% ON RA, DENIES SOB AT THIS TIME. URINAL AT BEDSIDE, PT USES INDEPENDENTLY. PT DENIES HAVING A BM FOR THE LAST COUPLE DAYS, HE REPORTS THIS IS NORMAL FOR HIM AND REFUSED STOOL SOFTENER. PT WITH RIGHT IJ SITE FROM IVC FILTER INSERTION ON 11/24. PT ALSO HAS LEFT LEG INSERTION SITE WITH STICH IN PLACE, [facility] TO REMOVE TODAY. PT RESTING IN BED AT THIS TIME. WILL MONITOR PT AND REPORT TO ONCOMING NURSE.
[2024-12-26 07:53] VITALS: BP 109/69
--- NOTE | 2024-12-26 09:00 | NUR ---
AM NOTE; PT AWAITING FOR INSURANCE AUTHORIZATON TO DC TO [facility]. VITALS HAS BEEN STABLE, COREG WAS HELD DUE TO BP PARAMETERS. PAIN MEDS GIVEN X1. PT ATE BREAKFAST NO ISSUES. PT STILL HAS STITCH ON POPLITEAL DR PRATT CALLED T BE REMOVD TODAY. NO OTHER ISSUES REPORTED PT USES URINAL AT BEDSIDE. WILL CONTNUE TO MONITOR
[2024-12-26 11:57] VITALS: BP 125/68
[2024-12-26 14:01] LABS: ANTI-XA QUALITATIVE INTERP Present (Not Present); ANTICOAG MEDICATION NEUTRALIZ Hepzyme (Not Performed); DRVVT 1:1 MIX RATIO Not Performed (<=1.20); DRVVT CONFIRMATION RATIO Not Performed (<=1.20); DRVVT SCREEN RATIO 1.01 (<=1.20); HEXAGONAL PHOSPHOLIPID CONFIRM Not Performed s (<=7.9); NEUTRALIZED DRVVT SCREEN RATIO Not Performed (<=1.20); NEUTRALIZED PTT-LA RATIO 0.82 (<=1.20); PROTHROMBIN TIME (PT) 15.4 s (12.0-15.5); PTT-LA RATIO 2.56 (<=1.20); THROMBIN TIME (TT) >150.0 s (<=19.5)
[2024-12-26 16:15] VITALS: BP 128/76
--- NOTE | 2024-12-26 18:44 | NUR ---
NO ACUTE CHANGE FOR THE SHIFT, STILL WAITING FOR INSURANCE AUTHORIZATION, STILL PENDING DC TOMORROW. FLOWSTASIS REMOVED BY DR PRATT AT TH BEDSIDE. DRESSING REMAINED DRY AND INTACT. VITALS HAS BEEN STABLE. PT HAS BEEN MEDICATED FOR PAIN. PT CALLS APPROPRIATELY. WILL REPORT TO ONCOMING SHIFT
[2024-12-26 19:45] VITALS: BP 117/78
[2024-12-26 23:49] VITALS: BP 121/72
[2024-12-27 04:46] VITALS: BP 137/73
--- NOTE | 2024-12-27 05:22 | NUR ---
SHIFT SUMMARY ASSUMED CARE AT 0700. PT A/OX4. PLEASANT AND COOPERATIVE WITH CARE. ON ROOM AIR SATTING ABOVE 90%. PT REPORTED PAIN IN LEGS AND HEADACHE, TREATED PER MAR. VSS. PT ABLE TO REPOSITION SELF IN BED FREQUENTLY. PT STATES NO BM IN 3 DAYS, BUT ALSO STATES THAT THIS IS HIS NORMAL PATTERN. BOWEL TONES PRESENT. RIGHT LEG EXHIBITING +1 EDEMA. NO ACUTE EVENTS THIS SHIFT.
[2024-12-27 07:13] VITALS: BP 119/75
[2024-12-27] MEDS ORDERED: Docusate Sodium 100 MG Cap PO SCH (09:00)
[2024-12-27] MEDS ORDERED: Magnesium Hydroxide Conc 10 ML UDC PO SCH (09:00)
[2024-12-27 12:29] VITALS: BP 123/72
[2024-12-27 16:24] LABS: PROTHROMBIN F2 G20210A VARIANT Negative; PT PCR SPECIMEN Whole Blood
[2024-12-27 16:48] VITALS: BP 117/92
--- NOTE | 2024-12-27 18:29 | NUR ---
SHIFT SUMMARY: PT WAS DENIED AUTHORIATION THIS AM FOR SNF. PT CALLED TO APPEAL DENIAL AND DISCOVERED THAT THERE WAS AN ERROR WITH INFORMATION THAT WAS SUBMITED TO INSURANCE. AUTORIZATION RESUBMITTED. PLAN TO KEEP PT AT THIS FACILITY TILL INSURANCE REPLIES TO AUTH. PT DENIED ANY COMPLAINTS DURING THIS SHIFT AND NO SIGNIFICANT EVENTS HAPPENED. WILL CONTINUE TO CARE FOR PT TILL END OF SHIFT.
[2024-12-27 19:34] VITALS: BP 125/65
[2024-12-27 23:08] VITALS: BP 128/72
[2024-12-28 04:46] VITALS: BP 137/73
--- NOTE | 2024-12-28 05:02 | NUR ---
SHIFT SUMMARY PT REMAINED A/O, ON RA, VSS. REPORTED PAIN IN NECK, HEAD, AND BLE. TREATED PER JAN. SEE ULTRASOUND RESULTS FROM DAY PREVIOUS. NOTIFIED. HEPARIN TO BEGIN AT 0800 THIS AM PENDING LAB RESULTS.
[2024-12-28 05:27] LABS: Hematocrit 28.4 % (37.0-53.0); Hemoglobin 9.2 g/dL (13.5-17.5); Mean Platelet Volume 10.2 fL (9.1-12.4); Platelet Count 150 K/mm3 (150-400)
[2024-12-28 05:39] LABS: International Normalized Ratio 1.07; Prothrombin Time Results 11.4 Sec (9.7-11.5)
[2024-12-28 07:58] VITALS: BP 115/67; BP 123/73
[2024-12-28] MEDS ORDERED: Dose Adjust by Pharmacy XX STA ×4 (08:08→23:25)
[2024-12-28] MEDS ORDERED: Heparin Sodium,Porcine/0.5 NS 500 ML IV SCH (08:10)
[2024-12-28] MEDS ORDERED: Losartan Potassium 25 MG Tab PO SCH (12:00)
[2024-12-28 12:13] VITALS: BP 121/67
[2024-12-28] MEDS ORDERED: Heparin Sodium 5000 Units/ML 1ML MDV IV ONE (15:35)
--- NOTE | 2024-12-28 18:54 | NUR ---
SHIFT SUMMARY: PT AxOX4. FOLLOWS COMMANDS AND MAKES NEEDS KNOWN TO STAFF. PT STARTED ON HEPARIN GTT THIS AM THAT WAS TITRATED UP THIS AFTERNOON. DR LANGFORD CAME AND SAW PT THIS AFTERNOON AND PLANS FOR A POSSIBLE THROMBETOMY TOMORROW. SWELLING HAS SPREAD UP PTS LEG SLIGHTLY OVER THE DAY. PROVIDER AWARE. NO OTHER SIGNIFICANT EVENTS HAPPENED THIS SHIFT. WILL CONTINUE TO CARE FOR PT TILL END OF SHIFT.
--- NOTE | 2024-12-28 19:51 | NUR ---
ASSUMPTION OF CARE ASSUMED PT'S CARE AT 1900,BEDSIDE REPORT COMPLETED.PT RESTING IN BED WITH EYES OPEN.PLAN OF CARE REVIEWED.HEPARIN GTT INFUSING ORDERED.PT REQUESTED FOR PRN TYLENOL WITH MED PASS FOR CHRONIC SHOULDER PAIN.DENIES FURTHER NEEDS.CALL LIGHT AND PT'S ITEMS WITHIN REACH.WILL CONTINUE TO MONITOR.
[2024-12-28 20:46] VITALS: BP 123/68
[2024-12-28 23:44] VITALS: BP 122/62
[2024-12-29] VITALS (10 sets, daily range): BP systolic 91–125; BP diastolic 56–90
[2024-12-29 06:02] LABS: Hematocrit 27.6 % (37.0-53.0); Hemoglobin 8.9 g/dL (13.5-17.5); Mean Corpuscular HGB 31.8 pg (26.0-34.0); Mean Corpuscular HGB Conc 32.2 g/dL (31.5-36.5); Mean Corpuscular Volume 99 fL (80-100); Mean Platelet Volume 10.1 fL (9.1-12.4); Platelet Count 145 K/mm3 (150-400); RDW Coefficient Variation 12.6 % (11.7-14.2); RDW Standard Deviation 45.3 fL (35.1-46.3)
[2024-12-29 06:31] LABS: Bun/Creatinine Ratio 19.7 (12.0-20.0); Calcium, Blood 8.8 mg/dL (8.5-10.1); Creatinine, Blood 0.96 mg/dL (0.60-1.20); Potassium, Blood 3.9 mmol/L (3.5-5.5)
[2024-12-29] MEDS ORDERED: Dose Adjust by Pharmacy XX STA ×3 (06:41→21:39)
--- NOTE | 2024-12-29 06:43 | NUR ---
SHIFT SUMMARY PT WENT TO BED AFTER 0200.PT WAS AWAKE PLAYING GAMES ON HIS PHONE.PT STATES THAT HE STAYS UP LATE.PRN PAIN MEDICINE GIVEN PER PT'S REQUEST FOR SHOULDER,NECK AND LEG PAIN.REPORTED PAIN RELIEF.BLE ASSESSMENT REMAINS UNCHANGED.LEFT LEG SWOLLEN AND TENDER TO TOUCH.HEPARIN GTT INFUSING ORDERED.PT HAS BEEN NPO SINCE MIDNIGHT EXCEPT SIPS OF WATER MEDICINE.PT STILL SLEEPING THIS MORNING BUT EASILY AROUSABLE.PT DENIES PAIN,DENIES NEEDS.CALL LIGHT AND PT'S ITEMS WITHIN REACH.WILL GIVE REPORT TO DAYSHIFT NURSE FOR CONTINUITY OF CARE.
[2024-12-29] MEDS ORDERED: Heparin Sodium 1000 Units/ML 10ML MDV ONE ×3 (07:44→13:04)
[2024-12-29] MEDS ORDERED: NS 1,000 ML IV ONE ×2 (07:44→07:45)
[2024-12-29] MEDS ORDERED: Midazolam HCl 1MG / ML 2ML Vial ONE (13:01)
[2024-12-29] MEDS ORDERED: FentaNYL Citrate 50 MCG/ML 2 ML Injection ONE (13:02)
--- NOTE | 2024-12-29 17:37 | NUR ---
HEPARIN GTT RESTARTED AT 21UNITS/KG PER ORDERS WHEN RETURNED FROM [facility] AT 1400.
--- NOTE | 2024-12-29 18:07 | NUR ---
SHIFT SUMMARY; ASSUMED CARE AT 0700. A/A/OX4. REPOSITIONS SELF ON BED NEEDED DURING SHIFT, USES URINAL AT EDGE OF BED. TAKEN TO SUPERVISOR BODY ASSEMBLY FOR POSSIBLE CLOT IN LEFT LEG. LEFT POPLITEAL SITE DRY WITH TAGADERM IN PLACE. HEPARIN RESTARTED FOLLOWING PROCEDURE PER ORDERS, INFUSING AT 21UNIT/KG. VSS, NO ACUTE CHANGES OR DISTRESS DURING SHIFT. WILL CONTINUE TO MONITOR AND TREAT UNTIL REPORT GIVEN TO NOC SHIFT RN.
[2024-12-30 00:33] VITALS: BP 123/70
[2024-12-30 04:29] VITALS: BP 111/66
[2024-12-30] MEDS ORDERED: Dose Adjust by Pharmacy XX STA (06:17)
[2024-12-30] MEDS ORDERED: TraMADol HCl 50 MG Tab PO PRN (07:15)
--- NOTE | 2024-12-30 07:32 | NUR ---
SHIFT SUMMARY: PT IS A&OX4, PLEASANT AND COOPERATIVE WITH CARE. VSS ON RA. SR IN THE 70'S. C/O PAIN TO THE LEFT SIDE OF HIS NECK/TRAPEZEUS MUSCLE. PT STATES HE CONSUMED PO TRAMADOL EARLIER IN SHIFT AND IT DIDN'T REALLY HELP WITH HIS PAIN, SO THIS RN MEDICATED HIM WITH 2MG IV MORPHINE, WITH GOOD EFFECT. NOOB THIS SHIFT. TOLERATING A CONS CARB DIET. USING URINAL INDEPENDENTLY IN BED, VOIDING ADEQUATE AMOUNTS OF CLEAR, YELLOW URINE. NO BM THIS SHIFT. BED IN LOWEST POSITION, CALL LIGHT WITHIN REACH. CALLS APPROPRIATELY AND IS ABLE TO ADVOCATE NEEDS EFFECTIVELY.
[2024-12-30 08:04] VITALS: BP 118/65
[2024-12-30] MEDS ORDERED: Apixaban 5 MG Tab PO SCH (09:00)
[2024-12-30] MEDS ORDERED: TROLAMINE SALICYLATE 10% CREAM 141 GM TUBE TOP PRN ×2 (16:55→18:55)
[2024-12-30 17:28] VITALS: BP 119/62
--- NOTE | 2024-12-30 18:41 | NUR ---
SHIFT SUMMARY; ASSUMED CARE AT 0700. A/A/OX4 DURING SHIFT, REPOSITIONS SELF IN BED, USES URINAL AT EDGE OF BED. BALLOON SITE TO LEFT POPLITEAL NO SWOLLEN WITH TEGADERM AND DRESSING IN PLACE, C/D/I. TREATED FOR LEFT SHOULDER PAIN PER EMAR. PAIN MANAGEMENT DISCUSSED BY PROVIDER AND THIS RN. AGREES TO INCREASE ULTRAM AND DC IV MORPHINE. TOPICAL PAIN RELIVER ORDERED PER VERBAL ORDER FROM DR. SIMON. STATUS CHANGED TO MEDICAL, NO ACUTE CHANGES, VSS. WILL CONTINUE TO MONITOR AND TREAT UNTIL CHANGE OF SHIFT AND REPORT TO NOC SHIFT RN.
[2024-12-30 20:02] VITALS: BP 119/74
[2024-12-30] MEDS ORDERED: Sennosides 8.6 MG Tab PO PRN (21:40)
[2024-12-30] MEDS ORDERED: Magnesium Hydroxide Conc 10 ML UDC PO PRN (21:40)
[2024-12-31 05:34] VITALS: BP 122/67
--- NOTE | 2024-12-31 06:57 | NUR ---
SHIFT SUMMARY: PT IS A&OX4, PLEASANT AND COOPERATIVE WITH CARE. VSS ON RA. C/O PAIN TO THE LEFT SIDE OF HIS NECK/TRAPEZEUS MUSCLE. PRN PO TRAMADOL AND/OR TYLENOL GIVEN. TOLERATING A CONS CARB DIET. PT TRANSFERRED HIMSELF TO BSC, JUST SLID FROM BED TO BSC. WHEN ASKED IF HE COULD STAND AND PIVOT, HE STATES HE HAS NOT STOOD IN MONTHS. PT HAD LARGE, SOFT, FORMED BM X1. PT WAS UNABLE TO CLEAN HIMSELF. USING URINAL INDEPENDENTLY IN BED, VOIDING ADEQUATE AMOUNTS OF CLEAR, YELLOW URINE. BED IN LOWEST POSITION, CALL LIGHT WITHIN REACH. CALLS APPROPRIATELY AND IS ABLE TO ADVOCATE NEEDS EFFECTIVELY.
[2024-12-31 08:04] VITALS: BP 115/68
[2024-12-31] MEDS ORDERED: Apixaban 5 MG Tab PO SCH (09:00)
[2024-12-31] MEDS ORDERED: Vancocin HCl125 MG PO (11:35)
[2024-12-31] MEDS ORDERED: VISBIOME 112.51 EACH PO (11:36)
[2024-12-31] MEDS ORDERED: GLIP2.5ER PO (11:37)
[2024-12-31] MEDS ORDERED: MICONAZOLE NITR85 GM TOP (11:39)
[2024-12-31] MEDS ORDERED: ELIQUIS5 M2 PO (11:39)
[2024-12-31] MEDS ORDERED: LOSA25 PO (11:40)
[2024-12-31] MEDS ORDERED: TRAM50 PO (11:47)
[2024-12-31 11:55] VITALS: BP 137/71
== END 2024-12-31 13:01 | disposition home health service (06) | DRG 271 ==
LOC: ER 11:03 → PCU 11:04
PROVIDERS: Internal Medicine; Student in an Organized Health Care Education/Training Program; ADMIT Internal Medicine
PROC: 06CY3ZZ Extirpation of Matter from Lower Vein, Percutaneous Approach (ICD-10-PCS; principal; 2024-12-24)
PROC: 06HD3DZ Insertion of Intraluminal Device into Left Common Iliac Vein, Percutaneous Approach (ICD-10-PCS; 2024-12-24)
PROC: 06H03DZ Insertion of Intraluminal Device into Inferior Vena Cava, Percutaneous Approach (ICD-10-PCS; 2024-12-24)
PROC: B51C1ZZ Fluoroscopy of Left Lower Extremity Veins using Low Osmolar Contrast (ICD-10-PCS; 2024-12-24)
DX: I82.422 Acute embolism and thrombosis of left iliac vein (principal); A04.72 Enterocolitis due to Clostridium difficile, not specified as recurrent; I50.22 Chronic systolic (congestive) heart failure; N17.9 Acute kidney failure, unspecified; E11.40 Type 2 diabetes mellitus with diabetic neuropathy, unspecified; E78.5 Hyperlipidemia, unspecified; H40.9 Unspecified glaucoma; Z87.19 Personal history of other diseases of the digestive system; Z96.631 Presence of right artificial wrist joint; J44.9 Chronic obstructive pulmonary disease, unspecified; I82.412 Acute embolism and thrombosis of left femoral vein; I82.432 Acute embolism and thrombosis of left popliteal vein; I82.452 Acute embolism and thrombosis of left peroneal vein; I11.0 Hypertensive heart disease with heart failure; I95.1 Orthostatic hypotension; G89.29 Other chronic pain; E11.51 Type 2 diabetes mellitus with diabetic peripheral angiopathy without gangrene; Z89.511 Acquired absence of right leg below knee; Z79.899 Other long term (current) drug therapy; Z86.14 Personal history of Methicillin resistant Staphylococcus aureus infection; Z99.3 Dependence on wheelchair; Z87.891 Personal history of nicotine dependence; Z79.891 Long term (current) use of opiate analgesic; Z79.84 Long term (current) use of oral hypoglycemic drugs; Z89.432 Acquired absence of left foot; Z88.8 Allergy status to other drugs, medicaments and biological substances; Z87.11 Personal history of peptic ulcer disease
CPT/HCPCS: 36415; 37187; 37191; 37238; 37252; 74177; 75820; 76937; 80048; 80053; 81240; 82947; 83090; 83605; 85014; 85018; 85025; 85027; 85049; 85300; 85303; 85306; 85307; 85347; 85520; 85525; 85610; 85613; 85670; 85730; 86146; 86147; 87324; 87507; 93005; 93010; 93971; 94640; 94664; 94760; 94762; 96365; 96375; 97110; 97162; 97164; 97165; 97530; 99152; 99153; 99285-25; A9270; C1725; C1753; C1757; C1769; C1880; C1887; C1894; G0378; J1644; J2250; J2270; J2470; J3010; J7030; J7040; J7120; Q9967

== ENCOUNTER 2025-02-11 21:01 | Emergency (ER) | payer OTHER ==
[~2025-02-11] VITALS: Ht 193 cm; Wt 111.1 kg
[~2025-02-11 21:01] MED LIST changes: +ELIQUIS5 M2 PO; +MICONAZOLE NITR85 GM TOP; +Vancocin HCl125 MG PO
[2025-02-11 23:53] LABS: Source, Urine Clean Catch
[2025-02-12] LABS: Bilirubin, Urine Neg (Neg); Blood, Urine Neg (Neg); Glucose Qualitative, Urine Neg (Neg); Ketones, Urine Neg (Neg); Leukocyte Esterase, Urine Neg (Neg); Nitrite, Urine Neg (Neg); Protein, Urine 2+ (Neg); Urobilinogen, Urine 2+ (Normal)
[2025-02-12 00:17] LABS: Appearance, Urine Hazy (Clear); Color, Urine Yellow (P-Yellow)
[2025-02-12 00:19] LABS: Bacteria Few /hpf; Red Blood Cells, Urine 0-2 /hpf (0-2); Squamous Epithelial Cells Many /hpf (Few)
[2025-02-12 03:25] LABS: BASOPHILS ABSOLUTE AUTO 0.03 K/mm3 (0.00-0.23); BASOPHILS PERCENT AUTO 1 % (0-2); EOSINOPHILS ABSOLUTE AUTO 0.26 K/mm3 (0.00-0.68); EOSINOPHILS PERCENT AUTO 5 % (0-6); Hematocrit 33.1 % (37.0-53.0); IMMATURE GRAN ABSOLUTE AUTO 0.01 K/mm3 (0.00-0.10); IMMATURE GRAN PERCENT AUTO 0 % (0-1); LYMPHOCYTES ABSOLUTE AUTO 1.71 K/mm3 (0.84-5.20); LYMPHOCYTES PERCENT AUTO 35 % (21-46); MONOCYTES ABSOLUTE AUTO 0.31 K/mm3 (0.16-1.47); MONOCYTES PERCENT AUTO 6 % (4-13); Mean Corpuscular HGB 30.7 pg (26.0-34.0); Mean Corpuscular HGB Conc 33.2 g/dL (31.5-36.5); Mean Corpuscular Volume 93 fL (80-100); Mean Platelet Volume 9.9 fL (9.1-12.4); NEUTROPHILS ABSOLUTE AUTO 2.63 K/mm3 (1.96-9.15); NEUTROPHILS PERCENT AUTO 53 % (41-73); Platelet Count 124 K/mm3 (150-400); RDW Coefficient Variation 14.3 % (11.7-14.2); RDW Standard Deviation 48.3 fL (35.1-46.3); Red Blood Cell Count 3.58 M/mm3 (4.30-5.90); White Blood Cell Count 4.95 K/mm3 (4.00-11.30)
[2025-02-12 03:49] LABS: Albumin, Blood 2.7 g/dL (3.4-5.0); Albumin/Globulin Ratio 0.8 (0.8-1.8); Bilirubin, Total 0.6 mg/dL (0.1-1.0); Bun/Creatinine Ratio 8.5 (12.0-20.0); Calcium, Blood 8.2 mg/dL (8.5-10.1); Creatinine, Blood 0.83 mg/dL (0.60-1.20); Globulin, Blood 3.3 g/dL (2.2-4.0); Potassium, Blood 2.9 mmol/L (3.5-5.5)
[2025-02-12 05:07] VITALS: BP 154/85
== END 2025-02-12 05:15 | disposition home or self-care (01) ==
LOC: ER 21:01
PROVIDERS: Emergency Medicine; Student in an Organized Health Care Education/Training Program
DX: R31.9 Hematuria, unspecified (principal); Z59.89 Other problems related to housing and economic circumstances; E11.40 Type 2 diabetes mellitus with diabetic neuropathy, unspecified; I10 Essential (primary) hypertension; E78.5 Hyperlipidemia, unspecified; Z88.8 Allergy status to other drugs, medicaments and biological substances; Z79.899 Other long term (current) drug therapy; Z79.890 Hormone replacement therapy; Z79.51 Long term (current) use of inhaled steroids; Z79.52 Long term (current) use of systemic steroids; Z79.83 Long term (current) use of bisphosphonates; Z79.02 Long term (current) use of antithrombotics/antiplatelets; Z79.891 Long term (current) use of opiate analgesic
CPT/HCPCS: 51700; 51702; 51798; 80053; 81001; 85025; 99283-25

== ENCOUNTER 2025-03-15 14:48 | Emergency (ER) | payer OTHER ==
[~2025-03-15] VITALS: Ht 193 cm; Wt 111.1 kg
[2025-03-15] MEDS ORDERED: Apixaban 5 MG Tab PO ONE (17:20)
[2025-03-15 17:26] VITALS: BP 163/75
== END 2025-03-15 17:46 | disposition home or self-care (01) ==
LOC: ER 14:48
DX: I82.431 Acute embolism and thrombosis of right popliteal vein (principal); I82.512 Chronic embolism and thrombosis of left femoral vein; E11.40 Type 2 diabetes mellitus with diabetic neuropathy, unspecified; I10 Essential (primary) hypertension; E78.5 Hyperlipidemia, unspecified; Z89.511 Acquired absence of right leg below knee; Z88.8 Allergy status to other drugs, medicaments and biological substances; Z79.84 Long term (current) use of oral hypoglycemic drugs; Z79.899 Other long term (current) drug therapy
CPT/HCPCS: 93971; 99284-25; A9270

== ENCOUNTER → 2025-03-19 | Outpatient (CLI) | payer OTHER ==
[~2025-03-19] MED LIST changes: +ALBU90OI INH; +FLUTICASONE-SA1 EAC1; +LATA.005SO; -METFORMIN HCL500 M2 PO; +NYSTRIT TOP; +OXAYDO5 M1 PO
[2025-03-20 10:12] LABS: BASOPHILS ABSOLUTE AUTO 0.03 K/mm3 (0.00-0.23); BASOPHILS PERCENT AUTO 1 % (0-2); EOSINOPHILS ABSOLUTE AUTO 0.24 K/mm3 (0.00-0.68); EOSINOPHILS PERCENT AUTO 5 % (0-6); Hematocrit 37.6 % (37.0-53.0); Hemoglobin 11.7 g/dL (13.5-17.5); IMMATURE GRAN ABSOLUTE AUTO 0.01 K/mm3 (0.00-0.10); IMMATURE GRAN PERCENT AUTO 0 % (0-1); LYMPHOCYTES ABSOLUTE AUTO 1.18 K/mm3 (0.84-5.20); LYMPHOCYTES PERCENT AUTO 26 % (21-46); MONOCYTES ABSOLUTE AUTO 0.35 K/mm3 (0.16-1.47); MONOCYTES PERCENT AUTO 8 % (4-13); Mean Corpuscular HGB 30.8 pg (26.0-34.0); Mean Corpuscular HGB Conc 31.1 g/dL (31.5-36.5); Mean Corpuscular Volume 99 fL (80-100); Mean Platelet Volume 11.3 fL (9.1-12.4); NEUTROPHILS ABSOLUTE AUTO 2.77 K/mm3 (1.96-9.15); NEUTROPHILS PERCENT AUTO 61 % (41-73); Platelet Count 157 K/mm3 (150-400); RDW Coefficient Variation 15.5 % (11.7-14.2); RDW Standard Deviation 56.8 fL (35.1-46.3); White Blood Cell Count 4.58 K/mm3 (4.00-11.30)
[2025-03-20 10:56] LABS: Anion Gap 7 mmol/L (3-11); Blood Urea Nitrogen 9 mg/dL (8-24); Bun/Creatinine Ratio 10.6 (12.0-20.0); CHOL/HDL RATIO 1.7; CO2, Blood 29 mmol/L (21-32); Chloride, Blood 107 mmol/L (98-108); Cholesterol 114 mg/dL (50-200); Creatinine, Blood 0.85 mg/dL (0.60-1.20); Glomerular Filtration Rate 93 (60-); Glucose, Blood 111 mg/dL (70-99); HDL Cholesterol 68 mg/dL (>39); LDL/HDL RATIO 0.5; Low Density Lipoprotein Chol 34 mg/dL (0-110); Potassium, Blood 5.5 mmol/L (3.5-5.5); Sodium, Blood 137 mmol/L (136-145); Triglycerides 60 mg/dL (30-160); Very Low Density Lipoprot Chol 12 mg/dL (6-32)
== END ==
LOC: LAB 12:25 → LAB SHORT 12:25
PROVIDERS: Physician Assistant
DX: Z51.81 Encounter for therapeutic drug level monitoring (principal); Z79.899 Other long term (current) drug therapy
CPT/HCPCS: 80048; 80061; 85025